=== PATIENT | female | born 1955 | race Caucasian/White ===

== ENCOUNTER 2018-11-22 17:33 | Emergency (ER) | payer OTHER, SELFPAY ==
[2018-11-22 17:36] VITALS: BP 137/84; PULSE 92; RESP 18; TEMP 36.8; O2SAT 95
--- NOTE | 2018-11-22 17:41 | DI.RAD.S_ITS ---
PROCEDURE: XR CHEST 2V INDICATIONS: fever/cough TECHNIQUE: 2 views of the chest were acquired. COMPARISON: [facility], , CHEST 1 VIEW, 09/27/2015, 16:07. FINDINGS: Surgical changes and devices: None. Lungs and pleura: Lungs are clear. No pleural effusions or pneumothorax. Mediastinum: Mediastinal contours are normal. Heart size is mildly enlarged. Bones and chest wall: No suspicious bony abnormalities. Soft tissues appear unremarkable. IMPRESSION: No acute cardiopulmonary pathology. Dictated by: Patrice Ulloa M.D. on 11/22/2018 at 18:33 Approved by: Patrice Ulloa M.D. on 11/22/2018 at 18:33
[2018-11-22 18:08] LABS: Influenza A and B by PCR Rapid Negative (Negative)
[2018-11-22 18:09] LABS: Add Manual Diff / Slide Review NO; Basophils Absolute Auto 100 /uL (0-100); Basophils Percent Auto 1.4 % (0-2); Eosinophils Absolute Auto 400 /uL (0-450); Eosinophils Percent Auto 7.7 % (2-4); Lymphocytes Absolute Auto 1700 /uL (1100-4500); Lymphocytes Percent Auto 31.9 % (25-40); Mean Corpuscular HGB Conc 33.4 % (30-36); Mean Corpuscular Hemoglobin 30.9 PG (26-34); Mean Corpuscular Volume 92.7 fL (80-100); Monocytes Absolute Auto 500 /uL (0-900); Monocytes Percent Auto 10.1 % (3-14); Neutrophils Absolute Auto 2600 /uL (1500-7000); Neutrophils Percent Auto 48.9 % (50-75); Platelet Count 289 X10^3/uL (150-400); Red Blood Cell Count 4.53 X10^6/uL (4.0-5.2); Red Cell Distribution Width 13.2 % (11.6-14.8); White Blood Cell Count 5.3 X10^3/uL (4.5-11.0)
[2018-11-22] MEDS: ONDANSETRON 4 MG/2 ML INJ IV (18:09)
[2018-11-22] MEDS: SODIUM CHLORIDE 0.9% 1,000 ML 1000 ML IV (18:10)
[2018-11-22 18:22] LABS: Alanine Aminotransferase 18 IU/L (9-52); Albumin 4.5 g/dL (3.5-5.0); Albumin Globulin Ratio 1.5 (1.0-2.8); Alkaline Phosphatase 60 U/L (38-126); Aspartate Aminotransferase 30 IU/L (14-36); BUN Creatinine Ratio 17.5 (6-22); Bilirubin Total 0.7 mg/dL (0.2-1.3); Blood Urea Nitrogen 14 mg/dL (7-17); Calcium 9.9 mg/dL (8.4-10.2); Carbon Dioxide 23 mmol/L (22-32); Chloride 102 mmol/L (98-107); Estimated Glomerular Filt Rate > 60.0 mL/min (>60); Globulin 3.1 g/dL (1.7-4.1); Glucose 89 mg/dL (80-110); HEMOLYSIS 47 (0-50); Potassium 4.3 mmol/L (3.4-5.1); Sodium 134 mmol/L (137-145); Total Protein 7.6 g/dL (6.3-8.2)
--- NOTE | 2018-11-22 18:39 | ED_ITS ---
HPI - Nausea/Vomiting/Diarrhea General Chief complaint: Nausea/Vomiting/Diarrhea Stated complaint: kidney pain, nausea, weak Time Seen by Provider: 11/22/18 18:01 Source: patient Mode of arrival: Ambulatory Limitations: no limitations History of Present Illness HPI Narrative: 63-year-old female nonsmoker with history of asthma presents with a chief complaint of about 1 months worth of widespread symptoms. Initially she started with a runny nose, sore throat and dry cough that seemed to trigger her asthma. She on occasion had low fever but nothing persistent. She denies any ongoing year, throat pain. She has no productive cough. She has had some nausea vomiting and diarrhea over the past few weeks. She denies any persistent abdominal pain but says it comes and goes. She denies recent long-distance tr michelle, use of antibiotics, or exposure to ill persons or bad food. She denies any blood in her stool. She denies dysuria, frequency or urgency but does states she has bilateral flank pain. MD complaint: nausea, vomiting and diarrhea Onset (ago): week(s) Description of Vomiting: food contents Description of Diarrhea: watery Associated Abdominal Pain: Yes Location of pain: diffuse Radiation: diffuse Severity: mild Quality: cramping Pain Consistency: intermittent Relieving factors: none Exacerbating factors: none Related Data Home Medications Medication Instructions Recorded Confirmed ALBUTEROL SULFATE (Ventolin / 2 puff INH Q4H PRN #0 01/14/10 Proventil) FLUTICASONE/SALMETEROL (Advair 1 dose IH BID #0 01/14/10 100-50 Diskus) IPRATROPIUM BROMIDE (Atrovent) 0 ml RT * DOSE/FREQUENCY #0 01/14/10 LEVOTHYROXINE SODIUM (Synthroid) 88 mcg PO Q DAY #0 01/14/10 Montelukast Sodium (Singulair) 10 mg PO Q DAY #0 01/14/10 Sumatriptan Succinate (Imitrex) 0 mg PO * UK DOSE/FREQUENCY #0 01/14/10 IBUPROFEN (#MOTRIN) 800 mg PO TID #0 08/17/10 VITAMIN D (Vitamin D3) 1,000 unit PO BID #0 08/17/10 fexofenadine 180 mg PO BID #0 08/17/10 levalbuterol HCl [Xopenex] 1.25 mg IH PRN #0 08/17/10 Ranitidine Hydrochloride 150 mg PO BID #0 10/20/11 (RANITIDINE) tramadol 50 mg PO PRN #0 10/20/11 [RITALIN] 10 mg PO QID #0 11/10/11 ACETAMINOPHEN (TYLENOL ARTHRITIS) 650 mg PO TID #0 03/29/12 Prochlorperazine Maleate 10 mg PO BIDP #0 04/12/12 cyclobenzaprine 10 mg PO TIDP #0 04/12/12 Previous Rx's Medication Instructions Recorded albuterol sulfate [Ventolin HFA] 0 puff INH Q4HP PRN #1 ea 09/27/15 oxycodone-acetaminophen [Percocet] 1 tab PO Q4HP PRN #15 tab 12/12/15 Allergies Allergy/AdvReac Type Severity Reaction Status Date / Time adhesive tape Allergy Mild blisters, Verified 11/22/18 18:09 paper tape ok cephradine [From Velosef] Allergy Mild Hives Verified 11/22/18 18:09 Sulfa (Sulfonamide Allergy Mild Hives Verified 11/22/18 18:09 Antibiotics) gabapentin [GABAPENTIN] Allergy Unknown Verified 11/22/18 18:09 latex [LATEX] Allergy Unknown Verified 11/22/18 18:09 Penicillins [PENICILLINS] Allergy Unknown Verified 11/22/18 18:09 propoxyphene AdvReac Mild itching, Verified 11/22/18 18:09 n/v MULTIPLE METAL ALLERGIES Allergy Unknown Uncoded 05/18/17 12:09 Review of Systems Constitutional Constitutional: Denies chills, Denies fatigue, Denies fever(s), Denies frequent falls, Denies lethargy and Reports weakness Eyes Eyes: Denies change in vision, Denies eye discharge, Denies irritation and Denies loss of vision ENT Ears, Nose, Mouth, and Throat: Denies change in voice, Denies dizziness, Reports nasal discharge, Denies neck pain, Reports post nasal drip, Denies sore throat and Denies throat swelling Cardiovascular Cardiovascular: Denies chest pain, Denies irregular heart rhythm, Denies lightheadedness, Denies palpitations, Denies dyspnea, Denies dyspnea on exertion and Denies orthopnea Respiratory Respiratory: Denies cough, Denies dyspnea, Denies dyspnea on exertion and Denies wheezing Gastrointestinal Gastrointestinal: Denies abdominal pain, Denies change in bowel habits, Reports diarrhea, Reports nausea and Reports vomiting Genitourinary Genitourinary: Denies hematuria, Denies flank pain, Denies urinary incontinence and Denies urinary urgency Musculoskeletal Musculoskeletal: Reports back pain, Denies muscle weakness, Denies neck pain, Denies numbness and Denies tingling Integumentary/Breasts Skin/Breast: Denies pruritus, Denies erythema, Denies rash and Denies wounds Neurologic Neurologic: Denies behavioral changes, Denies confusion, Denies dizziness, Denies frequent falls, Denies loss of vision, Denies numbness, Denies tingling and Reports weakness Psychiatric Psychiatric: Denies anxiety, Denies behavioral changes, Denies confusion, Denies depression, Denies homicidal ideation and Denies suicidal ideation Endocrine Endocrine: Denies fatigue, Denies flushing and Denies palpitations Hematologic/Lymphatic Hematologic/Lymphatic: Denies easy bruising Allergic/Immunologic Allergic/Immunologic: Denies urticaria, Denies throat swelling and Denies wheezing Patient History Social History Smoking Status: Never smoker Social History Smoking Status: Never smoker Exam Narrative Exam Narrative: GENERAL: [63] year old patient appears stated age. Well- nourished, well-developed patient, in mild distress. HEAD: Atraumatic. Normocephalic. EYES: Pupils equal round and reactive. Extraocular motions intact. No scleral icterus. No injection or drainage. ENT: Nose without bleeding, purulent drainage. Throat without erythema, tonsillar hypertrophy or exudate. Airway patent. NECK: Trachea midline. Non tender CARDIOVASCULAR: Regular rate and rhythm without murmurs, gallops, or rubs. RESPIRATORY: Clear to auscultation. Breath sounds equal bilaterally. No wheezes, rales, or rhonchi. GASTROINTESTINAL: Abdomen soft, non-tender, nondistended. EXTREMITIES: No edema or joint tenderness. BACK: Nontender without deformity or crepitance. Mild bilateral CVA tenderness NEURO: AOx3. SKIN: No rash or erythema of visible areas Initial Vital Signs Initial Vital Signs: Vital Signs Temperature 98.3 F 11/22/18 17:36 Pulse Rate 92 H 11/22/18 17:36 Respiratory Rate 18 11/22/18 17:36 Blood Pressure 137/84 11/22/18 17:36 Pulse Oximetry 95 11/22/18 17:36 Course Orders Ordered: ED Orders 11/22/18 17:41 XR chest 2V Stat 11/22/18 17:50 Influenza A and B by PCR Rapid Stat 11/22/18 18:00 CMP [Comprehensive Metabolic Panel] Stat Complete Blood Count AUTO DIFF Stat Lipase Stat 11/22/18 18:38 Urine Microscopic Stat 11/22/18 19:53 CT kidney ureter bladder (KUB) Stat Discontinued Medications Benzonatate (Tessalon Perles) 100 mg PO NOW ONE Stop: 11/22/18 21:08 Last Admin: 11/22/18 21:14 Dose: 100 mg Documented by: NIDA Benzonatate (Tessalon Perles) 100 mg PO NOW ONE Stop: 11/22/18 21:09 Last Admin: 11/22/18 21:14 Dose: 100 mg Documented by: NIDA Sodium Chloride (Normal Saline 0.9%) 1,000 mls @ 1,000 mls/hr IV BOLUS ONE Stop: 11/22/18 18:53 Last Infusion: 11/22/18 20:12 Dose: 0 mls/hr Documented by: Admin: 11/22/18 18:10 Dose: 1,000 mls/hr Documented by: NIDA Ondansetron HCl (Zofran) 4 mg IV NOW ONE Stop: 11/22/18 17:52 Last Admin: 11/22/18 18:09 Dose: 4 mg Documented by: NIDA Vital Signs Vital signs: Vital Signs - 8 hr 11/22/18 19:09 11/22/18 20:54 11/22/18 21:00 Pulse Rate 78 76 87 Respiratory Rate 17 17 16 Blood Pressure [Right Arm] 161/69 H 158/64 H 148/76 H Pulse Oximetry 94 98 97 MDM - Nausea/Vomiting/Diarrhea Lab Data Result diagrams: 11/22/18 18:00 11/22/18 18:00 Labs: Lab Results 11/22/18 11/22/18 11/22/18 Range/Units 17:50 18:00 18:00 WBC 5.3 (4.5-11.0) X10^3/uL RBC 4.53 (4.0-5.2) X10^6/uL Hgb 14.0 (12.0-16.0) g/dL Hct 42.0 (36-46) % MCV 92.7 (80-100) fL MCH 30.9 (26-34) PG MCHC 33.4 (30-36) % RDW 13.2 (11.6-14.8) % Plt Count 289 (150-400) X10^3/uL Neut % (Auto) 48.9 L (50-75) % Lymph % (Auto) 31.9 (25-40) % Moca % (Auto) 10.1 (3-14) % Eos % (Auto) 7.7 H (2-4) % Baso % (Auto) 1.4 (0-2) % Neut # (Auto) 2600 (4966-9234) /uL Lymph # (Auto) 1700 (8294-1471) /uL Moca # (Auto) 500 (0-900) /uL Eos # (Auto) 400 (0-450) /uL Baso # (Auto) 100 (0-100) /uL Sodium 134 L (137-145) mmol/L Potassium 4.3 (3.4-5.1) mmol/L Chloride 102 (98-107) mmol/L Carbon Dioxide 23 (22-32) mmol/L BUN 14 (7-17) mg/dL Creatinine 0.80 (0.52-1.04) mg/dL Estimated GFR > 60.0 (>60) mL/min BUN/Creatinine Ratio 17.5 (6-22) Glucose 89 (80-110) mg/dL Calcium 9.9 (8.4-10.2) mg/dL Total Bilirubin 0.7 (0.2-1.3) mg/dL AST 30 (14-36) IU/L ALT 18 (9-52) IU/L Alkaline Phosphatase 60 (38-126) U/L Total Protein 7.6 (6.3-8.2) g/dL Albumin 4.5 (3.5-5.0) g/dL Globulin 3.1 (1.7-4.1) g/dL Albumin/Globulin Ratio 1.5 (1.0-2.8) Lipase (23-300) U/L Urine RBC (0-5/HPF) Urine WBC (0-5/HPF) Urine Bacteria (None) Ur Culture Indicated? Influenza A & B (PCR) Negative (Negative) 11/22/18 11/22/18 Range/Units 18:00 18:38 WBC (4.5-11.0) X10^3/uL RBC (4.0-5.2) X10^6/uL Hgb (12.0-16.0) g/dL Hct (36-46) % MCV (80-100) fL MCH (26-34) PG MCHC (30-36) % RDW (11.6-14.8) % Plt Count (150-400) X10^3/uL Neut % (Auto) (50-75) % Lymph % (Auto) (25-40) % Moca % (Auto) (3-14) % Eos % (Auto) (2-4) % Baso % (Auto) (0-2) % Neut # (Auto) (6206-0283) /uL Lymph # (Auto) (4636-6463) /uL Moca # (Auto) (0-900) /uL Eos # (Auto) (0-450) /uL Baso # (Auto) (0-100) /uL Sodium (137-145) mmol/L Potassium (3.4-5.1) mmol/L Chloride (98-107) mmol/L Carbon Dioxide (22-32) mmol/L BUN (7-17) mg/dL Creatinine (0.52-1.04) mg/dL Estimated GFR (>60) mL/min BUN/Creatinine Ratio (6-22) Glucose (80-110) mg/dL Calcium (8.4-10.2) mg/dL Total Bilirubin (0.2-1.3) mg/dL AST (14-36) IU/L ALT (9-52) IU/L Alkaline Phosphatase (38-126) U/L Total Protein (6.3-8.2) g/dL Albumin (3.5-5.0) g/dL Globulin (1.7-4.1) g/dL Albumin/Globulin Ratio (1.0-2.8) Lipase 295 (23-300) U/L Urine RBC 10-30/hpf H (0-5/HPF) Urine WBC 0-1/hpf (0-5/HPF) Urine Bacteria None seen (None) Ur Culture Indicated? Cult not indicated Influenza A & B (PCR) (Negative) Urine Dip Bedside Urine Glucose Negative Bedside Urine Bilirubin - Negative Bedside Urine Ketone - Negative Urine Specific [place] 1.010 Bedside Urine Occult Blood +++ Bedside Urine pH 6.0 Bedside Urine Protein - Negative Bedside Urine Urobilinogen - Negative Bedside Urine Nitrite - Negative Bedside Urine Leukocytes - Negative Esterase Imaging Data CT scan - abdomen: Radiologist's impression: [address] [address] [address] Scan Report Signed Patient: Rivka Ye#: [id number] : 4Acct:[id number] Age/Sex: 63 / FDate of Service: 11/22/18 Loc: ED Accession Number: [id number] Procedure: CT kidney ureter bladder (KUB) Ordering Provider: Nishant Baca D.O. PROCEDURE: CT KIDNEY URETER BLADDER (KUB) INDICATIONS: flank pain, hematuria TECHNIQUE: Noncontrast 5 mm thick sections acquired from the diaphragms to the symphysis. 5 mm thick coronal and sagittal reformats were then performed. For radiation dose reduction, the following was used: automated exposure control, adjustment of mA and/or kV according to patient size. COMPARISON: None. FINDINGS: Image quality: Excellent. Lung bases: Lung bases are clear. Heart size is normal. Right breast implant appears intact. Urinary system: Both kidneys are normal in size. No kidney stones. No hydronephrosis or perinephric fat stranding. Both ureters appear non-dilated throughout their expected courses. Bladder wall thickness is normal; no calcified bladder stones. Other solid organs: Liver is normal in size. Gallbladder is within normal limits. Pancreas is normal in contours. Spleen is normal in size. No adrenal nodules. Peritoneum and bowel: Unenhanced bowel loops demonstrate normal wall thickness and caliber. No free fluid or air. No evidence of acute appendicitis or diverticulitis. Nodes and vessels: No retroperitoneal or mesenteric adenopathy by size criteria. Aorta and inferior vena cava are normal in caliber. Abdominal wall: No ventral hernias. Pelvis: No free pelvic fluid. No inguinal hernias or adenopathy. Bones: No suspicious bony lesions. No vertebral body compression fractures. Mild degenerative disc disease throughout lumbar spine is seen. IMPRESSION: 1. No renal stone or hydronephrosis. Normal appearing bilateral ureters or urinary bladder. 2. No bowel obstruction. No free fluid or free air. No evidence of acute appendicitis or diverticulitis. Dictated by: Patrice Ulloa M.D. on 11/22/2018 at 20:21 Approved by: Patrice Ulloa M.D. on 11/22/2018 at 20:27 [facility] Narrative Medical decision making narrative: Multiple etiologies for patient's symptoms considered including: [Pyelonephritis versus kidney stones versus many years perforated bowel obstruction or but the versus other] Patient's symptoms improved or duration of stay with above-stated therapies. Findings and discharge diagnosis discussed with patient/family followed by verbalization of understanding Return precautions discussed with patient/family whom verbalize understanding. Discharge Plan Departure Patient Disposition: Home Clinical Impression: Upper respiratory infection, viral, Nausea & vomiting Fatigue Qualifiers: Fatigue type: unspecified Qualified Code(s): R53.83 - Other fatigue Discharge Date/Time: 11/22/18 21:18 Instructions: Cough, DI for Vomiting -- Adult Activity Restrictions/Additional Instructions: *You have been diagnosed with [multiple symptoms including upper respiratory complaints suggestive of viral infection as well as nausea, vomiting, diarrhea and fatigue.] *What to do: *Take medications as directed *Follow up with your primary care provider in 2-3 days, call for an appointment. Let them know you were seen in the Emergency Department and that we ask that you be seen in follow up *Return to ER if you should have any new, worsening or concerning symptoms Prescriptions: No Action ALBUTEROL SULFATE (Ventolin / Proventil) 2 puff INH Q4H PRN Qty: 0 RF: 0 FLUTICASONE/SALMETEROL (Advair 100-50 Diskus) 1 dose IH BID Qty: 0 RF: 0 IPRATROPIUM BROMIDE (Atrovent) 0 ml RT * UK DOSE/FREQUENCY Qty: 0 RF: 0 LEVOTHYROXINE SODIUM (Synthroid) 88 mcg PO Q DAY Qty: 0 RF: 0 Montelukast Sodium (Singulair) 10 mg PO Q DAY Qty: 0 RF: 0 Sumatriptan Succinate (Imitrex) 0 mg PO * UK DOSE/FREQUENCY Qty: 0 RF: 0 fexofenadine 180 MG tablet 180 mg PO BID Qty: 0 RF: 0 levalbuterol HCl [Xopenex] 1.25 MG/3 ML solution for nebulization 1.25 mg IH PRN Qty: 0 RF: 0 IBUPROFEN (#MOTRIN) 800 mg PO TID Qty: 0 RF: 0 VITAMIN D (Vitamin D3) 1,000 unit PO BID Qty: 0 RF: 0 tramadol 50 MG tablet 50 mg PO PRN Qty: 0 RF: 0 Ranitidine Hydrochloride (RANITIDINE) 150 mg PO BID Qty: 0 RF: 0 [RITALIN] 10 mg PO QID Qty: 0 RF: 0 ACETAMINOPHEN (TYLENOL ARTHRITIS) 650 mg PO TID Qty: 0 RF: 0 cyclobenzaprine 10 MG tablet 10 mg PO TIDP Qty: 0 RF: 0 Prochlorperazine Maleate 10 mg PO BIDP Qty: 0 RF: 0 albuterol sulfate [Ventolin HFA] 90 MCG/PUFF HFA aerosol inhaler 0 puff INH Q4HP PRNQty: 1 RF: 0 oxycodone-acetaminophen [Percocet] 5 MG/325 MG tablet 1 tab PO Q4HP PRNQty: 15 RF: 0 Referrals: [facility] [Outside]
[2018-11-22 19:09] VITALS: BP 161/69; PULSE 78; RESP 17; O2SAT 94
[2018-11-22 19:13] LABS: Bacteria Urine None Seen
[2018-11-22 19:38] LABS: Culture Indicated Urine Cult Not Indicated; RBC Urine 10-30/HPF (0-5/HPF); WBC Urine 0-1/HPF (0-5/HPF)
[2018-11-22 19:39] LABS: Lipase 295 U/L (23-300)
--- NOTE | 2018-11-22 19:53 | DI.CT.S_ITS ---
PROCEDURE: CT KIDNEY URETER BLADDER (KUB) INDICATIONS: flank pain, hematuria TECHNIQUE: Noncontrast 5 mm thick sections acquired from the diaphragms to the symphysis. 5 mm thick coronal and sagittal reformats were then performed. For radiation dose reduction, the following was used: automated exposure control, adjustment of mA and/or kV according to patient size. COMPARISON: None. FINDINGS: Image quality: Excellent. Lung bases: Lung bases are clear. Heart size is normal. Right breast implant appears intact. Urinary system: Both kidneys are normal in size. No kidney stones. No hydronephrosis or perinephric fat stranding. Both ureters appear non-dilated throughout their expected courses. Bladder wall thickness is normal; no calcified bladder stones. Other solid organs: Liver is normal in size. Gallbladder is within normal limits. Pancreas is normal in contours. Spleen is normal in size. No adrenal nodules. Peritoneum and bowel: Unenhanced bowel loops demonstrate normal wall thickness and caliber. No free fluid or air. No evidence of acute appendicitis or diverticulitis. Nodes and vessels: No retroperitoneal or mesenteric adenopathy by size criteria. Aorta and inferior vena cava are normal in caliber. Abdominal wall: No ventral hernias. Pelvis: No free pelvic fluid. No inguinal hernias or adenopathy. Bones: No suspicious bony lesions. No vertebral body compression fractures. Mild degenerative disc disease throughout lumbar spine is seen. IMPRESSION: 1. No renal stone or hydronephrosis. Normal appearing bilateral ureters or urinary bladder. 2. No bowel obstruction. No free fluid or free air. No evidence of acute appendicitis or diverticulitis. Dictated by: Patrice Ulloa M.D. on 11/22/2018 at 20:21 Approved by: Patrice Ulloa M.D. on 11/22/2018 at 20:27
[2018-11-22 20:54] VITALS: BP 158/64; PULSE 76; RESP 17; O2SAT 98
[2018-11-22 21:00] VITALS: BP 148/76; PULSE 87; RESP 16; O2SAT 97
--- NOTE | 2018-11-22 21:09 | PC.NURSE ---
Provider ordered Tessalon Pearls, One cap now, One to go home. Labeled according to protocol / policy.
[2018-11-22] MEDS: BENZONATATE 100 MG CAPSULE PO ×2 (21:14)
== END 2018-11-22 21:18 | disposition home or self-care (01) ==
PROVIDERS: Emergency Medicine; Emergency Provider Emergency Medicine
DX: J06.9 Acute upper respiratory infection, unspecified (principal); R11.2 Nausea with vomiting, unspecified; R53.83 Other fatigue
CPT/HCPCS: 36415; 71046; 74176; 80053; 81003; 81015; 83690; 85025; 87400; 87502; 96361; 96374; 99284; 99285; J2405

== ENCOUNTER 2019-02-12 10:31 | Emergency (ER) | payer MEDICARE, OTHER, SELFPAY ==
[2019-02-12 10:51] VITALS: BP 139/74; PULSE 83; RESP 18; TEMP 36.8; O2SAT 97; BMI 31.7
--- NOTE | 2019-02-12 10:52 | DI.RAD.S_ITS ---
PROCEDURE: XR CHEST 2V INDICATIONS: cough TECHNIQUE: 2 views of the chest were acquired. COMPARISON: [facility], CR, XR CHEST 2V, 11/22/2018, 18:10. FINDINGS: Surgical changes and devices: None. Lungs and pleura: Lungs are clear. No pleural effusions or pneumothorax. Mediastinum: Mediastinal contours are normal. Heart size is normal. Bones and chest wall: No suspicious bony abnormalities. Soft tissues appear unremarkable. IMPRESSION: Stable examination of the chest without acute cardiopulmonary abnormalities or focal consolidation. Dictated by: Bryan Fernandez M.D. on 02/12/2019 at 11:08 Approved by: Bryan Fernandez M.D. on 02/12/2019 at 11:09
[2019-02-12 11:31] LABS: Influenza A - CEPHEID Flu A POSITIVE (NEGATIVE); Influenza B - CEPHEID Flu B NEGATIVE (NEGATIVE)
[2019-02-12] MEDS: ALBUTEROL/IPRATROPIUM 3 ML AMPUL INH (12:08)
[2019-02-12] MEDS: ONDANSETRON 4 MG ODT SL (12:19)
[2019-02-12 12:33] VITALS: BP 135/66; PULSE 92; RESP 22; TEMP 37.3; O2SAT 96
--- NOTE | 2019-02-12 13:59 | ED_ITS ---
HPI - URI/Sore Throat <Tg Kapadia, COMPENSATION INTERN-BC - Last Filed: 02/12/19 14:05> General Chief Complaint: Upper Respiratory Symptoms Stated Complaint: fever,cough,shortness of breath,headache Time Seen by Provider: 02/12/19 11:45 Source: patient Mode of arrival: Ambulatory Limitations: no limitations History of Present Illness HPI Narrative: The patient is a 64-year-old female with a chief complaint of fever cough, headache and worsening asthma. She states that she has had symptoms for 2 weeks. She states that occasionally her sputum is green. She complains of general muscle aches and chills. She has been using her nebulizers at home. She states that she is taking 40 mg of prednisone a day right now. She is mostly concerned about pneumonia. She denies any sore throat or ear pain. She complains of nausea, no vomiting or diarrhea Related Data Home Medications Medication Instructions Recorded Confirmed FLUTICASONE/SALMETEROL (Advair 1 dose IH BID #0 01/14/10 100-50 Diskus) IPRATROPIUM BROMIDE (Atrovent) 0 ml RT * UK DOSE/FREQUENCY #0 01/14/10 Sumatriptan Succinate (Imitrex) 0 mg PO * UK DOSE/FREQUENCY #0 01/14/10 levothyroxine [Synthroid] 88 mcg PO DAILY #0 01/14/10 02/12/19 montelukast 10 mg PO BEDTIME #0 01/14/10 02/12/19 IBUPROFEN (#MOTRIN) 800 mg PO TID #0 08/17/10 VITAMIN D (Vitamin D3) 1,000 unit PO BID #0 08/17/10 fexofenadine 180 mg PO BID #0 08/17/10 levalbuterol HCl [Xopenex] 1.25 mg IH PRN #0 08/17/10 Ranitidine Hydrochloride 150 mg PO BID #0 10/20/11 (RANITIDINE) tramadol 50 mg PO PRN #0 10/20/11 [RITALIN] 10 mg PO QID #0 11/10/11 ACETAMINOPHEN (TYLENOL ARTHRITIS) 650 mg PO TID #0 03/29/12 Prochlorperazine Maleate 10 mg PO BIDP #0 04/12/12 cyclobenzaprine 10 mg PO TIDP #0 04/12/12 albuterol sulfate 02/12/19 albuterol sulfate [Ventolin HFA] 2 puff INH Q4HP PRN 02/12/19 02/12/19 benzonatate 200 mg PO TID PRN 02/12/19 02/12/19 budesonide [Pulmicort] 02/12/19 budesonide-formoterol [Symbicort] INHALATION 02/12/19 doxycycline hyclate 100 mg PO BID 02/12/19 02/12/19 famotidine 02/12/19 omeprazole 20 mg PO BID 02/12/19 02/12/19 prednisone 02/12/19 Previous Rx's Medication Instructions Recorded oxycodone-acetaminophen [Percocet] 1 tab PO Q4HP PRN #15 tab 12/12/15 Allergies Allergy/AdvReac Type Severity Reaction Status Date / Time adhesive tape Allergy Mild blisters, Verified 02/12/19 10:51 paper tape ok cephradine [From Velosef] Allergy Mild Hives Verified 02/12/19 10:51 Sulfa (Sulfonamide Allergy Mild Hives Verified 02/12/19 10:51 Antibiotics) gabapentin [GABAPENTIN] Allergy Unknown Verified 02/12/19 10:51 latex [LATEX] Allergy Unknown Verified 02/12/19 10:51 Penicillins [PENICILLINS] Allergy Unknown Verified 02/12/19 10:51 propoxyphene AdvReac Mild itching, Verified 02/12/19 10:51 n/v MULTIPLE METAL ALLERGIES Allergy Unknown Uncoded 02/12/19 10:51 Review of Systems <ANA Nolasco - Last Filed: 02/12/19 14:05> Review of Systems Narrative: GENERAL: See HPI HEENT: Denies sinus pain, ear pain, sore throat, difficulty swallowing, dizziness. RESPIRATORY: See HPI CARDIOVASCULAR: Denies chest pain, palpitations, orthopnea, edema, GASTROINTESTINAL: See HPI : Denies dysuria, frequency, incontinence, hematuria, urinary retention. MUSCULOSKELETAL: denies weakness, joint pain, or bony pain SKIN: Denies rash, skin lesions, or other NEUROLOGIC: Denies weakness, headache, numbness, change in speech, confusion, seizures, incoordination. PSYCHIATRIC: No concerning psychosocial issues. 12 point review of systems is negative except for those stated above Patient History <ANA Nolasco - Last Filed: 02/12/19 14:05> Social History Smoking Status: Never smoker Smoking Status: Never smoker Exam <ANA Nolasco - Last Filed: 02/12/19 14:05> Narrative Exam Narrative: GENERAL: This is a well-nourished, well-developed patient, no acute distress HEAD: Atraumatic. Normocephalic. No temporal or scalp tenderness. EYES: Pupils equal round and reactive. Extraocular motions intact. No scleral icterus. No injection or drainage. ENT: Nose without bleeding, purulent drainage or septal hematoma. Throat without erythema, tonsillar hypertrophy or exudate. Uvula midline. Airway patent. NECK: Trachea midline. No JVD or lymphadenopathy. Supple, nontender, no meningeal signs. CARDIOVASCULAR: Regular rate and rhythm RESPIRATORY: Diffuse expiratory wheezes all hernadez auscultation. Breath sounds equal bilaterally. No rales, or rhonchi. Occasional cough. Speaking full sentences. No increased respiratory effort. GASTROINTESTINAL: Abdomen soft, non-tender, nondistended. No hepato- splenomegaly, or palpable masses. No guarding. EXTREMITIES: No clubbing, cyanosis, or edema. No joint tenderness, effusion, or edema noted. BACK: Nontender without deformity or crepitance. No flank tenderness. NEURO: AOx3. SKIN: No rash or erythema on visible skin Initial Vital Signs Initial Vital Signs: Vital Signs Temperature 98.3 F 02/12/19 10:51 Pulse Rate 83 02/12/19 10:51 Respiratory Rate 18 02/12/19 10:51 Blood Pressure 139/74 02/12/19 10:51 Pulse Oximetry 97 02/12/19 10:51 <Kristin Hayes MD - Last Filed: 02/12/19 20:07> Initial Vital Signs Initial Vital Signs: Vital Signs Temperature 98.3 F 02/12/19 10:51 Pulse Rate 83 02/12/19 10:51 Respiratory Rate 18 02/12/19 10:51 Blood Pressure 139/74 02/12/19 10:51 Pulse Oximetry 97 02/12/19 10:51 Scores <ANA Nolasco - Last Filed: 02/12/19 14:05> GCS [place] coma scale eye opening: Spontaneous Audrey coma scale verbal response: Orientated Audrey coma scale motor response: Obey commands Audrey coma scale total score: 15 Course <ANA Nolasco - Last Filed: 02/12/19 14:05> Orders Ordered: ED Orders 02/12/19 12:02 RT Consult Eval and Treat NOW 02/12/19 13:00 Sputum Culture Stat Discontinued Medications Albuterol/Ipratropium (Duoneb) 3 ml INH NOW ONE Stop: 02/12/19 12:07 Last Admin: 02/12/19 12:08 Dose: 3 ml Documented by: RSELFRIDLEILANI Ondansetron HCl (Zofran Odt) 4 mg SL NOW ONE Stop: 02/12/19 12:03 Last Admin: 02/12/19 12:19 Dose: 4 mg Documented by: CPRUITT Vital Signs Vital signs: Vital Signs - 8 hr 02/12/19 12:33 Temperature 99.1 F Pulse Rate 92 H Respiratory Rate 22 Blood Pressure [Left Arm] 135/66 Pulse Oximetry 96 <Kristin Hayes MD - Last Filed: 02/12/19 20:07> Orders Ordered: ED Orders 02/12/19 12:02 RT Consult Eval and Treat NOW 02/12/19 13:00 Sputum Culture Stat Discontinued Medications Albuterol/Ipratropium (Duoneb) 3 ml INH NOW ONE Stop: 02/12/19 12:07 Last Admin: 02/12/19 12:08 Dose: 3 ml Documented by: RSELFRIDLEILANI Ondansetron HCl (Zofran Odt) 4 mg SL NOW ONE Stop: 02/12/19 12:03 Last Admin: 02/12/19 12:19 Dose: 4 mg Documented by: CPRUITT Vital Signs Vital signs: Vital Signs - 8 hr 02/12/19 12:33 Temperature 99.1 F Pulse Rate 92 H Respiratory Rate 22 Blood Pressure [Left Arm] 135/66 Pulse Oximetry 96 MDM - URI/Sore Throat <ANA Nolasco - Last Filed: 02/12/19 14:05> Lab Data Labs: Lab Results 02/12/19 Range/Units 10:47 Influenza A (RT-PCR) Flu a positive H (NEGATIVE) Influenza B (RT-PCR) Flu b negative (NEGATIVE) Imaging Data Chest x-ray: Radiologist's Impression: Rivka Ye 64 F [address] [address] XRay Report Signed Patient: Rivka YeMR#: [id number] : 1955cct:[id number] Age/Sex: 64 / FDate of Service: 02/12/19 Loc: ED Accession Number: [id number] Procedure: XR chest 2V Ordering Provider: Kristin Hayes MD PROCEDURE: XR CHEST 2V INDICATIONS: cough TECHNIQUE: 2 views of the chest were acquired. COMPARISON: [facility], , XR CHEST 2V, 11/22/2018, 18:10. FINDINGS: Surgical changes and devices: None. Lungs and pleura: Lungs are clear. No pleural effusions or pneumothorax. Mediastinum: Mediastinal contours are normal. Heart size is normal. Bones and chest wall: No suspicious bony abnormalities. Soft tissues appear unremarkable. IMPRESSION: Stable examination of the chest without acute cardiopulmonary abnormalities or focal consolidation. Dictated by: Bryan Fernandez M.D. on 02/12/2019 at 11:08 Approved by: Bryan Fernandez M.D. on 02/12/2019 at 11:09 [facility] Narrative Medical decision making narrative: The patient is a 64-year-old female who presents with a chief complaint of fever muscle aches cough and congestion. She does test positive for flu A. X-ray is not concerning for pneumonia. She does have wheezing on exam, correlating with her asthma history. She was given a nebulizing the emergency department which she states improved. I gave her Zofran as well, and she was able to drink fluids. I discussed at length a burst of steroids, and the patient is on steroids at this time at 40 mg per day. She states that she has been on doses as high as 120 mg per day. I discussed a burst for 5 days would be appropriate, the patient does not want a prescription of this and states that she will use her home supply to provide a burst of 80 mg q.day for 5 days. She does plan on following up with her asthma physician. I discussed the possibility of admission given the severity of her wheezing, but the patient wants to go home at this point time. She is able to speak full sentences, greatly improved after nebulizer treatment, and is oxygenating well in the emergency department. I did discuss at length strict return precautions. Unfortunately the patient is out of the Tamiflu window. I encouraged follow-up with primary care provider as well as come back to the emergency department for any acute concerns such as significant shortness of breath etc.. Patient has no questions or concerns upon discharge and states understanding of return precautions as well as follow-up care. Sputum cultures pending at this time. <Kristin Hayes MD - Last Filed: 02/12/19 20:07> Lab Data Labs: Lab Results 02/12/19 Range/Units 10:47 Influenza A (RT-PCR) Flu a positive H (NEGATIVE) Influenza B (RT-PCR) Flu b negative (NEGATIVE) Discharge Plan Departure Patient Disposition: Home Clinical Impression: Acute asthma, Influenza A Discharge Date/Time: 02/12/19 13:20 Instructions: DI for Asthma -- Adult, DI for Influenza -- Adult Activity Restrictions/Additional Instructions: Today you tested positive for influenza A. Your x-ray shows no sign of pneumonia Please rest, push fluids. As discussed, I would increase your prednisone for a burst for 5 days. I would have prescribed 80 mg a day for 5 days given your wheezing. Please take your nebulizers every 4 hours as needed. Please follow-up with primary care provider as well as your asthma physician. As discussed, if you have any acute concerns please come back to the emergency department such as increased shortness of breath etcetera Prescriptions: No Action levothyroxine [Synthroid] 88 mcg Tablet 88 mcg PO DAILY Qty: 0 RF: 0 montelukast 10 mg Tablet 10 mg PO BEDTIME Qty: 0 RF: 0 FLUTICASONE/SALMETEROL (Advair 100-50 Diskus) 1 dose IH BID Qty: 0 RF: 0 IPRATROPIUM BROMIDE (Atrovent) 0 ml RT * UK DOSE/FREQUENCY Qty: 0 RF: 0 Sumatriptan Succinate (Imitrex) 0 mg PO * UK DOSE/FREQUENCY Qty: 0 RF: 0 fexofenadine 180 MG tablet 180 mg PO BID Qty: 0 RF: 0 levalbuterol HCl [Xopenex] 1.25 MG/3 ML solution for nebulization 1.25 mg IH PRN Qty: 0 RF: 0 IBUPROFEN (#MOTRIN) 800 mg PO TID Qty: 0 RF: 0 VITAMIN D (Vitamin D3) 1,000 unit PO BID Qty: 0 RF: 0 tramadol 50 MG tablet 50 mg PO PRN Qty: 0 RF: 0 Ranitidine Hydrochloride (RANITIDINE) 150 mg PO BID Qty: 0 RF: 0 [RITALIN] 10 mg PO QID Qty: 0 RF: 0 ACETAMINOPHEN (TYLENOL ARTHRITIS) 650 mg PO TID Qty: 0 RF: 0 cyclobenzaprine 10 MG tablet 10 mg PO TIDP Qty: 0 RF: 0 Prochlorperazine Maleate 10 mg PO BIDP Qty: 0 RF: 0 oxycodone-acetaminophen [Percocet] 5 MG/325 MG tablet 1 tab PO Q4HP PRNQty: 15 RF: 0 prednisone 20 mg tablet RF: 0 famotidine 20 mg tablet RF: 0 benzonatate 100 mg capsule 200 mg PO TID PRN (Reason: Cough) RF: 0 omeprazole 20 mg capsule,delayed release(DR/EC) 20 mg PO BID RF: 0 budesonide [Pulmicort] 0.5 mg/2 mL suspension for nebulization RF: 0 doxycycline hyclate 100 mg tablet 100 mg PO BID RF: 0 albuterol sulfate 2.5 mg/0.5 mL solution for nebulization RF: 0 Symbicort 160-4.5 mcg/actuation HFA aerosol inhaler INHALATION RF: 0 albuterol sulfate [Ventolin HFA] 90 MCG/PUFF HFA aerosol inhaler 2 puff INH Q4HP PRN (Reason: Shortness Of Breath) RF: 0
== END 2019-02-12 13:20 | disposition home or self-care (01) ==
PROVIDERS: Emergency Medicine; Emergency Provider Nurse Practitioner Family
DX: J09.X2 Influenza due to identified novel influenza A virus with other respiratory manifestations (principal); J45.901 Unspecified asthma with (acute) exacerbation
CPT/HCPCS: 71046; 87070; 87205; 87502; 99281; 99283

== ENCOUNTER 2019-05-04 17:35 | Emergency (ER) | payer MEDICARE, OTHER, SELFPAY ==
[2019-05-04 17:47] VITALS: BP 209/93; PULSE 100; RESP 28; TEMP 37.1; O2SAT 95; BMI 34.0
[2019-05-04 18:16] LABS: Bacteria Urine None Seen; RBC Urine None Seen (0-5/HPF); WBC Urine None Seen (0-5/HPF)
--- NOTE | 2019-05-04 18:18 | DI.RAD.S_ITS ---
PROCEDURE: XR CHEST 1V INDICATIONS: SOB, Cough TECHNIQUE: One view of the chest was acquired. COMPARISON: [facility], CR, XR CHEST 2V, 11/22/2018, 18:10. [facility], CR, XR CHEST 2V, 02/12/2019, 10:52. FINDINGS: Surgical changes and devices: None. Lungs and pleura: Scattered subsegmental atelectasis and/or scarring. No focal consolidation. mildly increased hazy and ground glass opacities bilaterally. No pleural effusions or pneumothorax. Mediastinum: Mediastinal contours appear normal. Heart size is normal. Bones and chest wall: No suspicious bony lesions. Overlying soft tissues appear unremarkable. IMPRESSION: Mildly increased ill-defined and hazy groundglass opacities raise the possibility of minimal or developing pulmonary edema. Differential includes low-grade atypical/viral pneumonia. No focal consolidation Dictated by: Jose Khan M.D. on 05/04/2019 at 19:06 Approved by: Jose Khan M.D. on 05/04/2019 at 19:08
[2019-05-04 18:20] LABS: Appearance Urine UA CLEAR; Bilirubin Urine UA NEGATIVE (NEGATIVE); Color Urine UA YELLOW; Glucose Urine UA NEGATIVE (Negative); Ketones Urine UA NEGATIVE (NEGATIVE); Leukocyte Esterase Urine UA NEGATIVE (NEGATIVE); Nitrite Urine UA NEGATIVE (Negative); Occult Blood Urine UA NEGATIVE (Negative); Protein Urine UA NEGATIVE (Negative); Urobilinogen Urine UA 0.2 E.U./dL (0.2)
[2019-05-04 18:32] LABS: pH Urine UA 6.5 (4.5-8.0)
[2019-05-04 18:33] LABS: Culture Indicated Urine Cult Not Indicated
--- NOTE | 2019-05-04 18:45 | ED.SOB ---
HPI - SOB/Dyspnea General Chief Complaint: Shortness of Breath/Dyspnea Stated Complaint: SOB FEVER COUGH SORE THROAT Time Seen by Provider: 05/04/19 18:16 Source: patient and family Mode of arrival: Family Vehicle Limitations: no limitations History of Present Illness HPI Narrative: 64-year-old female nonsmoker with history of asthma and recent diagnosis of influenza a presents to the emergency department by herself with a chief complaint of fever, increased use of her nebulizers, and rapidly worsening shortness of breath over the past day or 2. She denies any recent travel or exposure to persons known to have COVID-19. She denies any headache but admits to sneezing, sore throat and a persistent dry and hacking cough. She has no GI symptoms such as nausea, vomiting or diarrhea. She denies dysuria, frequency or urgency. She comes to us from [place] and lives at home with her MD Complaint: shortness of breath and cough Onset (ago): day(s) Context: recent illness Severity: moderate Consistency/Duration: constant Relieving factors: rest Exacerbating factors: coughing and inspiration Known history of: asthma Associated symptoms: fever, cough and wheezing Treatment prior to arrival: bronchodilator Related Data Home oxygen amount: none Home Medications Medication Instructions Recorded Confirmed FLUTICASONE/SALMETEROL (Advair 1 dose IH BID #0 01/14/10 100-50 Diskus) IPRATROPIUM BROMIDE (Atrovent) 0 ml RT * DOSE/FREQUENCY #0 01/14/10 Sumatriptan Succinate (Imitrex) 0 mg PO * DOSE/FREQUENCY #0 01/14/10 levothyroxine [Synthroid] 88 mcg PO DAILY #0 01/14/10 02/12/19 montelukast 10 mg PO BEDTIME #0 01/14/10 02/12/19 IBUPROFEN (#MOTRIN) 800 mg PO TID #0 08/17/10 VITAMIN D (Vitamin D3) 1,000 unit PO BID #0 08/17/10 fexofenadine 180 mg PO BID #0 08/17/10 levalbuterol HCl [Xopenex] 1.25 mg IH PRN #0 08/17/10 Ranitidine Hydrochloride 150 mg PO BID #0 10/20/11 (RANITIDINE) tramadol 50 mg PO PRN #0 10/20/11 [RITALIN] 10 mg PO QID #0 11/10/11 ACETAMINOPHEN (TYLENOL ARTHRITIS) 650 mg PO TID #0 03/29/12 Prochlorperazine Maleate 10 mg PO BIDP #0 04/12/12 cyclobenzaprine 10 mg PO TIDP #0 04/12/12 albuterol sulfate 02/12/19 albuterol sulfate [Ventolin HFA] 2 puff INH Q4HP PRN 02/12/19 02/12/19 benzonatate 200 mg PO TID PRN 02/12/19 02/12/19 budesonide [Pulmicort] 02/12/19 budesonide-formoterol [Symbicort] INHALATION 02/12/19 doxycycline hyclate 100 mg PO BID 02/12/19 02/12/19 famotidine 02/12/19 omeprazole 20 mg PO BID 02/12/19 02/12/19 prednisone 02/12/19 Previous Rx's Medication Instructions Recorded oxycodone-acetaminophen [Percocet] 1 tab PO Q4HP PRN #15 tab 12/12/15 promethazine-codeine 5 ml PO Q4-6H PRN #473 ml 05/04/19 Allergies Allergy/AdvReac Type Severity Reaction Status Date / Time bacitracin Allergy Severe Redness of Verified 05/04/19 17:58 [From Neosporin Skin ([id number])] neomycin Allergy Severe Redness of Verified 05/04/19 17:58 [From Neosporin Skin ([id number])] polymyxin B Allergy Severe Redness of Verified 05/04/19 17:58 [From Neosporin Skin ([id number])] adhesive tape Allergy Mild blisters, Verified 05/04/19 17:58 paper tape ok cephradine [From Velosef] Allergy Mild Hives Verified 05/04/19 17:58 Sulfa (Sulfonamide Allergy Mild Hives Verified 05/04/19 17:58 Antibiotics) gabapentin [GABAPENTIN] Allergy Unknown Verified 05/04/19 17:58 latex [LATEX] Allergy Unknown Verified 05/04/19 17:58 Penicillins [PENICILLINS] Allergy Unknown Verified 05/04/19 17:58 propoxyphene AdvReac Mild itching, Verified 05/04/19 17:58 n/v MULTIPLE METAL ALLERGIES Allergy Unknown Uncoded 05/04/19 17:58 Review of Systems Constitutional Constitutional: Reports chills, Denies fatigue, Reports fever(s), Denies frequent falls, Denies lethargy and Denies weakness Eyes Eyes: Denies change in vision, Denies eye discharge, Denies irritation and Denies loss of vision ENT Ears, Nose, Mouth, and Throat: Denies change in voice, Denies dizziness, Denies neck pain, Reports sore throat and Reports throat swelling Cardiovascular Cardiovascular: Denies chest pain, Denies irregular heart rhythm, Denies lightheadedness, Denies palpitations, Reports dyspnea, Reports dyspnea on exertion and Denies orthopnea Respiratory Respiratory: Reports cough, Reports dyspnea, Reports dyspnea on exertion and Reports wheezing Gastrointestinal Gastrointestinal: Denies abdominal pain, Denies change in bowel habits, Denies diarrhea, Denies nausea and Denies vomiting Genitourinary Genitourinary: Denies hematuria, Denies flank pain, Denies urinary incontinence and Denies urinary urgency Musculoskeletal Musculoskeletal: Denies back pain, Denies muscle weakness, Denies neck pain, Denies numbness and Denies tingling Integumentary/Breasts Skin/Breast: Denies pruritus, Denies erythema, Denies rash and Denies wounds Neurologic Neurologic: Denies behavioral changes, Denies confusion, Denies dizziness, Denies frequent falls, Denies loss of vision, Denies numbness, Denies tingling and Denies weakness Psychiatric Psychiatric: Denies anxiety, Denies behavioral changes, Denies confusion, Denies depression, Denies homicidal ideation and Denies suicidal ideation Endocrine Endocrine: Denies fatigue, Denies flushing and Denies palpitations Hematologic/Lymphatic Hematologic/Lymphatic: Denies easy bruising Allergic/Immunologic Allergic/Immunologic: Denies urticaria, Reports throat swelling and Reports wheezing Patient History Social History Smoking Status: Never smoker Smoking Status: Never smoker alcohol intake frequency: 0-2 drinks per day Substance Use Type: does not use Exam Narrative Exam Narrative: GENERAL: [64] year old patient appears stated age. Well-nourished, well-developed patient, in mild distress. Mild increased work of breathing, cough with any deep breath HEAD: Atraumatic. Normocephalic. EYES: Pupils equal round and reactive. Extraocular motions intact. No scleral icterus. No injection or drainage. ENT: Nose without bleeding, purulent drainage. Throat without erythema, tonsillar hypertrophy or exudate. Airway patent. NECK: Trachea midline. Non tender CARDIOVASCULAR: Regular rate and rhythm without murmurs, gallops, or rubs. RESPIRATORY: Clear to auscultation. Breath sounds equal bilaterally. No wheezes, rales, or rhonchi. GASTROINTESTINAL: Abdomen soft, non-tender, nondistended. EXTREMITIES: No edema or joint tenderness. BACK: Nontender without deformity or crepitance. No flank tenderness. NEURO: AOx3. SKIN: No rash or erythema of visible areas Initial Vital Signs Initial Vital Signs: Vital Signs Temperature 98.8 F 05/04/19 17:47 Pulse Rate 100 H 05/04/19 17:47 Respiratory Rate 28 H 05/04/19 17:47 Blood Pressure 209/93 H 05/04/19 17:47 Pulse Oximetry 95 05/04/19 17:47 Course Course Course Narrative: Given patient's history and symptomatology she is high risk for Covid-19 and has been placed under appropriate precautions. Orders Ordered: ED Orders 05/04/19 18:10 Influenza A & B (PCR) Stat Urinalysis and Microscopic Stat 05/04/19 18:18 XR chest 1V Stat 05/04/19 18:46 CT chest wo con Stat 05/04/19 18:51 C-Reactive Protein Quant Stat Complete Blood Count AUTO DIFF Stat Comprehensive Metabolic Panel Stat D Dimer Stat Ferritin Stat Lactate (Lactic Acid) Stat NT-proBNP (BNP-Adult 18+) Stat Procalcitonin Stat Troponin & CK Cardiac Panel Stat 05/04/19 19:14 Blood Culture Stat Vital Signs Vital signs: Vital Signs - 8 hr 05/04/19 17:47 05/04/19 19:54 Temperature 98.8 F Pulse Rate 100 H 101 H Respiratory Rate 28 H 22 Blood Pressure 209/93 H Blood Pressure [Left Arm] 143/83 H Pulse Oximetry 95 94 MDM - SOB/Dyspnea Lab Data Result diagrams: 05/04/19 18:51 05/04/19 18:51 Labs: Lab Results 05/04/19 05/04/19 05/04/19 Range/Units 18:10 18:10 18:51 WBC 6.0 (4.5-11.0) X10^3/uL RBC 3.82 L (4.0-5.2) X10^6/uL Hgb 12.1 (12.0-16.0) g/dL Hct 36.0 (36-46) % MCV 94.2 (80-100) fL MCH 31.7 (26-34) PG MCHC 33.7 (30-36) % RDW 13.8 (11.6-14.8) % Plt Count 320 (150-400) X10^3/uL Neut % (Auto) 86.0 H (50-75) % Lymph % (Auto) 9.9 L (25-40) % Hunt % (Auto) 3.6 (3-14) % Eos % (Auto) 0.0 L (2-4) % Baso % (Auto) 0.5 (0-2) % Neut # (Auto) 5200 (4696-9824) /uL Lymph # (Auto) 600 L (6814-5821) /uL Hunt # (Auto) 200 (0-900) /uL Eos # (Auto) 0 (0-450) /uL Baso # (Auto) 0 (0-100) /uL D-Dimer (<230) ng/mL Sodium (137-145) mmol/L Potassium (3.4-5.1) mmol/L Chloride (98-107) mmol/L Carbon Dioxide (22-32) mmol/L BUN (7-17) mg/dL Creatinine (0.52-1.04) mg/dL Estimated GFR (>60) mL/min BUN/Creatinine Ratio (6-22) Glucose (80-110) mg/dL Lactate (0.7-2.1) mmol/L Calcium (8.4-10.2) mg/dL Ferritin (11-264) ng/mL Total Bilirubin (0.2-1.3) mg/dL AST (14-36) IU/L ALT (<35) IU/L Alkaline Phosphatase (38-126) U/L Total Creatine Kinase (30-135) U/L CK-MB (CK-2) CK-MB (CK-2) Rel Index Troponin I (0.01-0.034) ng/mL C-Reactive Protein (<1.0) mg/dL NT-Pro-B Natriuret Pep (<125) pg/mL Total Protein (6.3-8.2) g/dL Albumin (3.5-5.0) g/dL Globulin (1.7-4.1) g/dL Albumin/Globulin Ratio (1.0-2.8) Procalcitonin (<0.5) ng/mL Urine Color Yellow Urine Appearance Clear Urine pH 6.5 (4.5-8.0) Ur Specific [place] 1.010 (1.000-1.035) Urine Protein Negative (Negative) Urine Glucose (UA) Negative (Negative) g/dL Urine Ketones Negative (NEGATIVE) Urine Occult Blood Negative (Negative) Urine Nitrate Negative (Negative) Urine Bilirubin Negative (NEGATIVE) Urine Urobilinogen 0.2 (0.2) E.U./dL Ur Leukocyte Esterase Negative (NEGATIVE) Urine RBC None seen (0-5/HPF) Urine WBC None seen (0-5/HPF) Urine Bacteria None seen (None) Ur Culture Indicated? Cult not indicated Influenza A (RT-PCR) Flu a negative (NEGATIVE) Influenza B (RT-PCR) Flu b negative (NEGATIVE) 05/04/19 05/04/19 05/04/19 Range/Units 18:51 18:51 18:51 WBC (4.5-11.0) X10^3/uL RBC (4.0-5.2) X10^6/uL Hgb (12.0-16.0) g/dL Hct (36-46) % MCV (80-100) fL MCH (26-34) PG MCHC (30-36) % RDW (11.6-14.8) % Plt Count (150-400) X10^3/uL Neut % (Auto) (50-75) % Lymph % (Auto) (25-40) % Hunt % (Auto) (3-14) % Eos % (Auto) (2-4) % Baso % (Auto) (0-2) % Neut # (Auto) (5799-7264) /uL Lymph # (Auto) (2380-5730) /uL Hunt # (Auto) (0-900) /uL Eos # (Auto) (0-450) /uL Baso # (Auto) (0-100) /uL D-Dimer 289 H (<230) ng/mL Sodium 139 (137-145) mmol/L Potassium 4.0 (3.4-5.1) mmol/L Chloride 106 (98-107) mmol/L Carbon Dioxide 26 (22-32) mmol/L BUN 13 (7-17) mg/dL Creatinine 0.75 (0.52-1.04) mg/dL Estimated GFR > 60.0 (>60) mL/min BUN/Creatinine Ratio 17.3 (6-22) Glucose 151 H (80-110) mg/dL Lactate (0.7-2.1) mmol/L Calcium 9.6 (8.4-10.2) mg/dL Ferritin (11-264) ng/mL Total Bilirubin 0.4 (0.2-1.3) mg/dL AST 100 H (14-36) IU/L ALT 162 H (<35) IU/L Alkaline Phosphatase 110 (38-126) U/L Total Creatine Kinase (30-135) U/L CK-MB (CK-2) CK-MB (CK-2) Rel Index Troponin I (0.01-0.034) ng/mL C-Reactive Protein (<1.0) mg/dL NT-Pro-B Natriuret Pep (<125) pg/mL Total Protein 7.8 (6.3-8.2) g/dL Albumin 4.5 (3.5-5.0) g/dL Globulin 3.3 (1.7-4.1) g/dL Albumin/Globulin Ratio 1.4 (1.0-2.8) Procalcitonin < 0.05 (<0.5) ng/mL Urine Color Urine Appearance Urine pH (4.5-8.0) Ur Specific [place] (1.000-1.035) Urine Protein (Negative) Urine Glucose (UA) (Negative) g/dL Urine Ketones (NEGATIVE) Urine Occult Blood (Negative) Urine Nitrate (Negative) Urine Bilirubin (NEGATIVE) Urine Urobilinogen (0.2) E.U./dL Ur Leukocyte Esterase (NEGATIVE) Urine RBC (0-5/HPF) Urine WBC (0-5/HPF) Urine Bacteria (None) Ur Culture Indicated? Influenza A (RT-PCR) (NEGATIVE) Influenza B (RT-PCR) (NEGATIVE) 05/04/19 05/04/19 05/04/19 Range/Units 18:51 18:51 18:51 WBC (4.5-11.0) X10^3/uL RBC (4.0-5.2) X10^6/uL Hgb (12.0-16.0) g/dL Hct (36-46) % MCV (80-100) fL MCH (26-34) PG MCHC (30-36) % RDW (11.6-14.8) % Plt Count (150-400) X10^3/uL Neut % (Auto) (50-75) % Lymph % (Auto) (25-40) % Hunt % (Auto) (3-14) % Eos % (Auto) (2-4) % Baso % (Auto) (0-2) % Neut # (Auto) (7735-0489) /uL Lymph # (Auto) (6061-2554) /uL Hunt # (Auto) (0-900) /uL Eos # (Auto) (0-450) /uL Baso # (Auto) (0-100) /uL D-Dimer (<230) ng/mL Sodium (137-145) mmol/L Potassium (3.4-5.1) mmol/L Chloride (98-107) mmol/L Carbon Dioxide (22-32) mmol/L BUN (7-17) mg/dL Creatinine (0.52-1.04) mg/dL Estimated GFR (>60) mL/min BUN/Creatinine Ratio (6-22) Glucose (80-110) mg/dL Lactate 1.7 (0.7-2.1) mmol/L Calcium (8.4-10.2) mg/dL Ferritin 53 (11-264) ng/mL Total Bilirubin (0.2-1.3) mg/dL AST (14-36) IU/L ALT (<35) IU/L Alkaline Phosphatase (38-126) U/L Total Creatine Kinase 59 (30-135) U/L CK-MB (CK-2) TNP CK-MB (CK-2) Rel Index TNP Troponin I < 0.012 (0.01-0.034) ng/mL C-Reactive Protein 2.1 H (<1.0) mg/dL NT-Pro-B Natriuret Pep 415 H (<125) pg/mL Total Protein (6.3-8.2) g/dL Albumin (3.5-5.0) g/dL Globulin (1.7-4.1) g/dL Albumin/Globulin Ratio (1.0-2.8) Procalcitonin (<0.5) ng/mL Urine Color Urine Appearance Urine pH (4.5-8.0) Ur Specific [place] (1.000-1.035) Urine Protein (Negative) Urine Glucose (UA) (Negative) g/dL Urine Ketones (NEGATIVE) Urine Occult Blood (Negative) Urine Nitrate (Negative) Urine Bilirubin (NEGATIVE) Urine Urobilinogen (0.2) E.U./dL Ur Leukocyte Esterase (NEGATIVE) Urine RBC (0-5/HPF) Urine WBC (0-5/HPF) Urine Bacteria (None) Ur Culture Indicated? Influenza A (RT-PCR) (NEGATIVE) Influenza B (RT-PCR) (NEGATIVE) Imaging Data Chest x-ray: Radiologist's Impression: Rivka Ye 64 F [address] [address] XRay Report Signed Patient: Rivka YeMR#: [id number] : 4Acct:[id number] Age/Sex: 64 / FDate of Service: 05/04/19 Loc: ED Accession Number: [id number] Procedure: XR chest 1V Ordering Provider: Nishant Baca D.O. PROCEDURE: XR CHEST 1V INDICATIONS: SOB, Cough TECHNIQUE: One view of the chest was acquired. COMPARISON: [facility], CR, XR CHEST 2V, 11/22/2018, 18:10. [facility], CR, XR CHEST 2V, 02/12/2019, 10:52. FINDINGS: Surgical changes and devices: None. Lungs and pleura: Scattered subsegmental atelectasis and/or scarring. No focal consolidation. mildly increased hazy and ground glass opacities bilaterally. No pleural effusions or pneumothorax. Mediastinum: Mediastinal contours appear normal. Heart size is normal. Bones and chest wall: No suspicious bony lesions. Overlying soft tissues appear unremarkable. IMPRESSION: Mildly increased ill-defined and hazy groundglass opacities raise the possibility of minimal or developing pulmonary edema. Differential includes low-grade atypical/viral pneumonia. No focal consolidation Dictated by: Jose Khan M.D. on 05/04/2019 at 19:06 Approved by: Jose Khan M.D. on 05/04/2019 at 19:08 CT scan - chest: Radiologist's Impression: Chart Viewer Diagnostics DATE TYPE STATUS AUTHOR Hx 05/04/19 18:46 Jose Khan 05/04/19 18:18 Jose Khan 02/12/19 10:52 Bryan Fernandez 11/22/18 19:53 Patrice Ulloa 11/22/18 17:41 ArtemioPatrice Rivka Ye 64, 1955 [facility], [facility] 175.26cm 104.326kg BMI: 34.0kg/m? Shortness of Breath/Dyspnea Search Chart No Data to Display NF - Not included in interaction checking Redness of Skin Redness of Skin Redness of Skin blisters, paper tape ok Hives Hives itching, n/v ONSET 05/04/19 19:54 Rivka Yeyne 64 F 1955 [place] [address] CT Scan Report Signed Patient: Rivka YeMR#: [id number] : [id number]:[id number] Age/Sex: 64 / FDate of Service: 05/04/19 Loc: ED Accession Number: [id number] Procedure: CT chest wo con Ordering Provider: Nishant Baca D.O. PROCEDURE: CT CHEST WO CON INDICATIONS: SOB, cough, fever TECHNIQUE: Noncontrast 5 mm thick sections acquired from the pulmonary apices to the posterior costophrenic angles. 1 mm lung window, 5 mm thick coronal and sagittal and 7 mm axial MIP reformats were then acquired. For radiation dose reduction, the following was used: automated exposure control, adjustment of mA and/or kV according to patient size. COMPARISON: [facility], CR, XR CHEST 1V, 05/04/2019, 18:25. FINDINGS: Image quality: Excellent. Lungs and pleura: Scattered subsegmental atelectasis and/or scarring. No focal consolidation. Airway thickening in keeping with nonspecific bronchitis and/or reactive airways disease. No pleural effusions or pneumothorax. Central and peripheral airways are patent and normal in caliber. No definite pulmonary edema is seen. This Mediastinum: Heart size is mildly enlarged. No pericardial effusion. No mediastinal adenopathy by size criteria. Thoracic aorta and central pulmonary arteries are normal in size. Esophagus is normal in caliber. No hiatal hernia. Bones and chest wall: Right breast prosthesis No suspicious bony lesions. No vertebral body compression fractures. No axillary or supraclavicular adenopathy by size criteria. Thyroid gland negative. Abdomen: Visualized upper abdominal solid organs and bowel loops appear normal in the absence of contrast. IMPRESSION: Airway thickening in keeping with nonspecific bronchitis and/or reactive airways disease. Scattered subsegmental atelectasis and/or scarring. No focal consolidation. Dictated by: Jose Khan M.D. on 05/04/2019 at 19:27 Approved by: Jose Khan M.D. on 05/04/2019 at 19:32 Discharge Plan Departure Patient Disposition: Home Clinical Impression: Suspected COVID-19 virus infection, Pneumonia, viral Discharge Date/Time: 05/04/19 20:13 Instructions: DI for Asthma -- Adult, DI for Viral Upper Respiratory Infection -- Adult Activity Restrictions/Additional Instructions: *You have been diagnosed with [ viral pneumonia, which based on your symptoms, labs and imaging is highly suspicious for coronavirus] *What to do: * per recommendations from the CDC and the [facility] Department of Health * stay home except to get medical care. Restrict activities outside your home, except for getting medical care. Do not go to work, school, or public areas. Avoid using public transportation, ride sharing, or taxis. * separate yourself from other people in your home. * call ahead before visiting your doctor * Wear a facemask * Cover your coughs and sneezes * Clean your hands often * Avoid sharing household items * Clean all high-touch services every day * Monitor your symptoms and seek prompt medical attention if your illness is worsening, particularly with difficulty in breathing. Discussed continuing home isolation * for individuals with symptoms who are confirmed or suspected cases of COVID-19 and are directed to care for themselves at home, discontinue home isolation under the following conditions: 1. At least 72 hours have passed since recovery, defined as resolution of fever without the use of fever reducing medications, and improvement in respiratory symptoms (cough, shortness of breath) AND, 2. At least 7 days have passed since symptoms 1st appeared Individuals with laboratory confirmed COVID-19 who have not had any symptoms may discontinue home isolation when at least 7 days have passed since the date of their 1st COVID-19 diagnostic test and have had no subsequent illness Prescriptions: New promethazine-codeine 6.25-10 mg/5 mL syrup 5 ml PO Q4-6H PRN (Reason: cough) Qty: 473 RF: 0 No Action levothyroxine [Synthroid] 88 mcg Tablet 88 mcg PO DAILY Qty: 0 RF: 0 montelukast 10 mg Tablet 10 mg PO BEDTIME Qty: 0 RF: 0 FLUTICASONE/SALMETEROL (Advair 100-50 Diskus) 1 dose IH BID Qty: 0 RF: 0 IPRATROPIUM BROMIDE (Atrovent) 0 ml RT * [place] DOSE/FREQUENCY Qty: 0 RF: 0 Sumatriptan Succinate (Imitrex) 0 mg PO * [place] DOSE/FREQUENCY Qty: 0 RF: 0 fexofenadine 180 MG tablet 180 mg PO BID Qty: 0 RF: 0 levalbuterol HCl [Xopenex] 1.25 MG/3 ML solution for nebulization 1.25 mg IH PRN Qty: 0 RF: 0 IBUPROFEN (#MOTRIN) 800 mg PO TID Qty: 0 RF: 0 VITAMIN D (Vitamin D3) 1,000 unit PO BID Qty: 0 RF: 0 tramadol 50 MG tablet 50 mg PO PRN Qty: 0 RF: 0 Ranitidine Hydrochloride (RANITIDINE) 150 mg PO BID Qty: 0 RF: 0 [RITALIN] 10 mg PO QID Qty: 0 RF: 0 ACETAMINOPHEN (TYLENOL ARTHRITIS) 650 mg PO TID Qty: 0 RF: 0 cyclobenzaprine 10 MG tablet 10 mg PO TIDP Qty: 0 RF: 0 Prochlorperazine Maleate 10 mg PO BIDP Qty: 0 RF: 0 oxycodone-acetaminophen [Percocet] 5 MG/325 MG tablet 1 tab PO Q4HP PRNQty: 15 RF: 0 prednisone 20 mg tablet RF: 0 famotidine 20 mg tablet RF: 0 benzonatate 100 mg capsule 200 mg PO TID PRN (Reason: Cough) RF: 0 omeprazole 20 mg capsule,delayed release(DR/EC) 20 mg PO BID RF: 0 budesonide [Pulmicort] 0.5 mg/2 mL suspension for nebulization RF: 0 doxycycline hyclate 100 mg tablet 100 mg PO BID RF: 0 albuterol sulfate 2.5 mg/0.5 mL solution for nebulization RF: 0 Symbicort 160-4.5 mcg/actuation HFA aerosol inhaler INHALATION RF: 0 albuterol sulfate [Ventolin HFA] 90 MCG/PUFF HFA aerosol inhaler 2 puff INH Q4HP PRN (Reason: Shortness Of Breath) RF: 0 Referrals: [facility] [Outside]
[2019-05-04 19:01] LABS: Add Manual Diff / Slide Review NO; Basophils Absolute Auto 0 /uL (0-100); Basophils Percent Auto 0.5 % (0-2); Eosinophils Absolute Auto 0 /uL (0-450); Hemoglobin 12.1 g/dL (12.0-16.0); Lymphocytes Absolute Auto 600 /uL (1100-4500); Lymphocytes Percent Auto 9.9 % (25-40); Mean Corpuscular HGB Conc 33.7 % (30-36); Mean Corpuscular Hemoglobin 31.7 PG (26-34); Mean Corpuscular Volume 94.2 fL (80-100); Monocytes Absolute Auto 200 /uL (0-900); Monocytes Percent Auto 3.6 % (3-14); Neutrophils Absolute Auto 5200 /uL (1500-7000); Platelet Count 320 X10^3/uL (150-400); Red Blood Cell Count 3.82 X10^6/uL (4.0-5.2); Red Cell Distribution Width 13.8 % (11.6-14.8)
[2019-05-04 19:13] LABS: D Dimer 289 ng/mL (<230); Lactate (Lactic Acid) 1.7 mmol/L (0.7-2.1)
[2019-05-04 19:14] LABS: Alanine Aminotransferase 162 IU/L (<35); Albumin 4.5 g/dL (3.5-5.0); Albumin Globulin Ratio 1.4 (1.0-2.8); Alkaline Phosphatase 110 U/L (38-126); Aspartate Aminotransferase 100 IU/L (14-36); BUN Creatinine Ratio 17.3 (6-22); Bilirubin Total 0.4 mg/dL (0.2-1.3); Blood Urea Nitrogen 13 mg/dL (7-17); Calcium 9.6 mg/dL (8.4-10.2); Carbon Dioxide 26 mmol/L (22-32); Chloride 106 mmol/L (98-107); Creatine Kinase 59 U/L (30-135); Estimated Glomerular Filt Rate > 60.0 mL/min (>60); Globulin 3.3 g/dL (1.7-4.1); Glucose 151 mg/dL (80-110); HEMOLYSIS < 15 (0-50); Sodium 139 mmol/L (137-145); Total Protein 7.8 g/dL (6.3-8.2)
[2019-05-04 19:16] LABS: C-Reactive Protein Quant 2.1 mg/dL (<1.0)
[2019-05-04 19:26] LABS: NT-proBNP (BNP-Adult 18+) 415 pg/mL (<125); Troponin I < 0.012 ng/mL (0.01-0.034)
[2019-05-04 19:31] LABS: Procalcitonin < 0.05 ng/mL (<0.5)
[2019-05-04 19:48] LABS: Ferritin 53 ng/mL (11-264)
[2019-05-04 19:54] VITALS: BP 143/83; PULSE 101; RESP 22; O2SAT 94
[2019-05-04 21:46] LABS: Influenza A - CEPHEID Flu A NEGATIVE (NEGATIVE); Influenza B - CEPHEID Flu B NEGATIVE (NEGATIVE)
[2019-05-06 05:38] LABS: COVID19 Sendout Not Detected (Not Detected)
== END 2019-05-04 20:13 | disposition home or self-care (01) ==
PROVIDERS: Emergency Provider Emergency Medicine
DX: J12.9 Viral pneumonia, unspecified (principal); R06.02 Shortness of breath; R05 Cough; R50.9 Fever, unspecified
CPT/HCPCS: 36415; 71045; 71250; 80053; 81001; 82550; 82728; 83605; 83880; 84145; 84484; 85025; 85379; 86140; 87040; 87502; 87635; 99284

== ENCOUNTER → 2020-10-20 10:49 | Outpatient (CLI) | payer MEDICARE, OTHER, SELFPAY ==
--- NOTE | 2020-10-20 | DI.MRI.S_ITS ---
BREAST MRI OF BOTH BREASTS: 10/20/2020 CLINICAL: History of malignancy. PROCEDURE: MR BREAST BI WO/W CON INDICATIONS: RIGHT BREAST IMPLANT IN SITU;HX OF MALIGNANCY TECHNIQUE: The patient was placed prone in a dedicated breast imaging coil. Precontrast axial STIR and 3D FLASH without fat saturation sequences were obtained. Both before and after bolus injection of contrast, sequential 1-minute axial 3D FLASH with fat saturation sequences for 3 time points, with subtraction images and maximum intensity projections (MIP's) generated. Delayed sagittal FLASH images with fat saturation were also obtained. Computer-aided detection, including computer algorithm analysis of MRI image data for lesion detection and characterization, pharmacokinetic analysis, with further physician review for interpretation, was performed. COMPARISON: [facility], CR, XR CHEST 1V, 05/04/2019, 18:25. [facility], CT, CT CHEST WO CON, 05/04/2019, 18:47. [facility], MR, BREAST BILAT W/O CONTRAST, 11/13/2013, 8:16. FINDINGS: Image quality: Excellent. There is mild background parenchymal enhancement. Right breast: The right breast implant appears intact with no evidence of rupture. The right breast has multiple subcentimeter simple cysts; otherwise there is no abnormal focus, mass, or abnormal enhancement. No axillary or internal mammary chain adenopathy. Left breast: The left breast has multiple subcentimeter cysts, otherwise there is no abnormal focus, mass, or abnormal enhancement. No axillary or internal mammary chain adenopathy. There are postoperative changes of the left breast, possibly prior TRAM flap. Miscellaneous: No skin thickening, edema, or precontrast high duct signal in either breast. IMPRESSION: BENIGN 1. Intact right breast implant. 2. Innumerable subcentimeter cysts in both breasts. 3. No abnormal enhancement. No evidence of malignancy. Electronically Signed By: Jordin Rosenthal acr/:10/20/2020 20:30:48 Entry: - 10/21/2020 09:31:31 ACR BI-RADS Category 2: Benign Finding(s) [id number]
== END ==
PROVIDERS: Referring Provider Family Medicine; Visit Provider Family Medicine
DX: Z85.3 Personal history of malignant neoplasm of breast (principal); Z98.82 Breast implant status; N60.01 Solitary cyst of right breast; N60.02 Solitary cyst of left breast
CPT/HCPCS: 77049

== ENCOUNTER 2021-01-06 08:34 | Emergency (ER) | payer MEDICARE, OTHER, SELFPAY ==
[2021-01-06 08:58] VITALS: BP 142/66; PULSE 75; RESP 15; TEMP 36.6; O2SAT 97; BMI 35.4
--- NOTE | 2021-01-06 09:33 | DI.RAD.S_ITS ---
PROCEDURE: XR KNEE RT 3V INDICATIONS: fall/injury/pain TECHNIQUE: 3 views of the knee were acquired. COMPARISON: [facility], CT, CT FACIAL BONES WO CON, 01/06/2021, 9:41. [facility], CT, CT HEAD/BRAIN WO CON, 01/06/2021, 9:41. [facility], CR, XR HIP W PEL IF DONE LT 2V, 01/06/2021, 9:28. [facility], CR, XR KNEE LT 3V, 01/06/2021, 9:28. [facility], CR, XR HAND LT MIN 3V, 01/06/2021, 9:28. [facility], CR, XR FOOT RT MIN 3V, 01/06/2021, 9:28. [facility], CR, KNEE 1-2 VIEWS LEFT, 04/12/2012, 16:01. FINDINGS: Bones: No fractures or dislocations. No suspicious bony lesions. Right knee arthroplasty hardware is seen, which appears intact. Soft tissues: There is a mild a joint effusion. No suspicious soft tissue calcifications. IMPRESSION: No acute bony abnormality is seen. Intact appearing hardware. Mild joint effusion. Dictated by: Jeremiah Roach M.D. on 01/06/2021 at 8:57 Approved by: Jeremiah Roach M.D. on 01/06/2021 at 8:58
--- NOTE | 2021-01-06 09:33 | DI.RAD.S_ITS ---
PROCEDURE: XR FOOT RT MIN 3V INDICATIONS: fall/injury/pain TECHNIQUE: 3 views of the foot were acquired. COMPARISON: [facility], CR, TOE MINIMUM 2 VIEWS RIGHT, 09/09/2013, 13:50. [facility], CT, CT FACIAL BONES WO CON, 01/06/2021, 9:41. [facility], CT, CT HEAD/BRAIN WO CON, 01/06/2021, 9:41. [facility], CR, XR KNEE LT 3V, 01/06/2021, 9:28. [facility], CR, XR KNEE RT 3V, 01/06/2021, 9:28. [facility], CR, XR HIP W PEL IF DONE LT 2V, 01/06/2021, 9:28. [facility], CR, XR HAND LT MIN 3V, 01/06/2021, 9:28. [facility], CR, FOOT 3V RIGHT, 11/09/2016, 11:29. FINDINGS: Bones: No fractures or dislocations. No suspicious bony lesions. Mild hallux valgus deformity is seen, with associated focal degenerative change of the 1st metatarsophalangeal joint. Milder degenerative changes are seen elsewhere. A moderate plantar calcaneal spur is seen. Soft tissues: No tibiotalar joint effusion. Achilles tendon appears normal. IMPRESSION: No acute plain film abnormality is identified. Dictated by: Jeremiah Roach M.D. on 01/06/2021 at 9:01 Approved by: Jeremiah Roach M.D. on 01/06/2021 at 9:03
--- NOTE | 2021-01-06 09:33 | DI.RAD.S_ITS ---
PROCEDURE: XR HIP W PEL IF DONE LT 2V INDICATIONS: fall/injury/pain TECHNIQUE: AP pelvis with lateral view(s) of the left hip(s). COMPARISON: [facility], CT, CT KIDNEY URETER BLADDER (KUB), 11/22/2018, 20:10. [facility], CT, CT FACIAL BONES WO CON, 01/06/2021, 9:41. [facility], CT, CT HEAD/BRAIN WO CON, 01/06/2021, 9:41. [facility], CR, XR KNEE LT 3V, 01/06/2021, 9:28. [facility], CR, XR KNEE RT 3V, 01/06/2021, 9:28. [facility], CR, XR HAND LT MIN 3V, 01/06/2021, 9:28. [facility], CR, XR FOOT RT MIN 3V, 01/06/2021, 9:28. FINDINGS: Bones: No fractures or dislocations. Pelvic ring appears intact. No suspicious bony lesions. Mild, age-appropriate degenerative changes are seen. A stable os acetabulum is incidentally noted on the left. Soft tissues: The visualized bowel gas pattern is normal. No suspicious soft tissue calcifications. IMPRESSION: Negative for acute fracture. Degenerative changes are seen. Dictated by: Jeremiah Roach M.D. on 01/06/2021 at 8:59 Approved by: Jeremiah Roach M.D. on 01/06/2021 at 9:00
--- NOTE | 2021-01-06 09:33 | DI.RAD.S_ITS ---
PROCEDURE: XR KNEE LT 3V INDICATIONS: fall/injury/pain TECHNIQUE: 3 views of the knee were acquired. COMPARISON: [facility], CT, CT FACIAL BONES WO CON, 01/06/2021, 9:41. [facility], CT, CT HEAD/BRAIN WO CON, 01/06/2021, 9:41. [facility], CR, XR HIP W PEL IF DONE LT 2V, 01/06/2021, 9:28. [facility], CR, XR KNEE RT 3V, 01/06/2021, 9:28. [facility], CR, XR HAND LT MIN 3V, 01/06/2021, 9:28. [facility], CR, XR FOOT RT MIN 3V, 01/06/2021, 9:28. [facility], CR, KNEE 1-2 VIEWS LEFT, 04/12/2012, 16:01. FINDINGS: Bones: No fractures or dislocations. No suspicious bony lesions. Intact appearing, unremarkable left knee arthroplasty hardware is seen. Soft tissues: There is a mild left knee joint effusion. No suspicious soft tissue calcifications. IMPRESSION: Negative for fracture. Unremarkable appearing hardware. Dictated by: Jeremiah Roach M.D. on 01/06/2021 at 9:01 Approved by: Jeremiah Roach M.D. on 01/06/2021 at 9:01
--- NOTE | 2021-01-06 09:33 | DI.CT.S_ITS ---
PROCEDURE: CT HEAD/BRAIN WO CON INDICATIONS: fall/injury/pain TECHNIQUE: Noncontrast 4.5 mm thick angled axial sections acquired from the foramen magnum to the vertex, with coronal and sagittal reformats. For radiation dose reduction, the following was used: automated exposure control, adjustment of mA and/or kV according to patient size. COMPARISON: None. FINDINGS: Image quality: Excellent. CSF spaces: Basal cisterns are patent. No extra-axial fluid collections. The ventricles are symmetric in size and shape. Brain: No intracranial bleeds or masses. There is cerebral volume loss for age, with resultant ventricular and sulcal prominence. There are periventricular and deep white matter chronic small vessel ischemic changes. There is intracranial internal carotid artery atherosclerosis. Skull and face: Calvarium and visualized facial bones appear intact, without suspicious lesions. Sinuses: Visualized sinuses and mastoids are clear. IMPRESSION: 1. CT head without acute intracranial abnormalities or acute calvarial fractures. 2. Age-related senescent changes and sequela of chronic small vessel ischemic disease. Dictated by: Bryan Fernandez M.D. on 01/06/2021 at 9:50 Approved by: Bryna Fernandez M.D. on 01/06/2021 at 9:52
--- NOTE | 2021-01-06 09:34 | DI.RAD.S_ITS ---
PROCEDURE: XR HAND LT MIN 3V INDICATIONS: fall/pain TECHNIQUE: 3 views of the hand(s) acquired. COMPARISON: [facility], CT, CT FACIAL BONES WO CON, 01/06/2021, 9:41. [facility], CT, CT HEAD/BRAIN WO CON, 01/06/2021, 9:41. [facility], CR, XR KNEE LT 3V, 01/06/2021, 9:28. [facility], CR, XR KNEE RT 3V, 01/06/2021, 9:28. [facility], CR, XR HIP W PEL IF DONE LT 2V, 01/06/2021, 9:28. [facility], CR, XR FOOT RT MIN 3V, 01/06/2021, 9:28. FINDINGS: Bones: No acute fractures or dislocations. Scrutiny is given to the thumb and no fractures or dislocations are seen. There is a remote, unfused ulnar styloid fracture. Carpal bones are normally aligned. No suspicious bony lesions. Mild underlying degenerative changes are seen. Soft tissues: No suspicious soft tissue calcifications. IMPRESSION: Negative for acute fracture. Age-appropriate bony degenerative changes are seen. Dictated by: Jeremiah Roach M.D. on 01/06/2021 at 9:03 Approved by: Jeremiah Roach M.D. on 01/06/2021 at 9:05
--- NOTE | 2021-01-06 09:36 | ED_ITS ---
HPI - Fall General Chief Complaint: Fall Stated Complaint: FELL LAST NIGHT AND IN PAIN Time Seen by Provider: 01/06/21 09:24 Source: patient Mode of arrival: Ambulatory History of Present Illness HPI Narrative: Patient fell in [place] parking lot yesterday. Fell forward. History of bilateral knee replacements years ago. She landed on her knees. Stubbed her right foot/toe on the curb. Fell on her left hand. Hit her face on the ground. No loss of consciousness. No nausea vomiting no confusion no vision changes. Patient not on blood thinner. Denies any neck pain or back pain. Complains of left hip pain as well. She was in socks removed. Patient in gown. Related Data Home Medications Medication Instructions Recorded Confirmed FLUTICASONE/SALMETEROL (Advair 1 dose IH BID #0 01/14/10 100-50 Diskus) IPRATROPIUM BROMIDE (Atrovent) 0 ml RT * DOSE/FREQUENCY #0 01/14/10 Sumatriptan Succinate (Imitrex) 0 mg PO * DOSE/FREQUENCY #0 01/14/10 levothyroxine 88 mcg tablet 88 mcg PO DAILY #0 01/14/10 02/12/19 (Synthroid) montelukast 10 mg tablet 10 mg PO BEDTIME #0 01/14/10 02/12/19 IBUPROFEN (#MOTRIN) 800 mg PO TID #0 08/17/10 VITAMIN D (Vitamin D3) 1,000 unit PO BID #0 08/17/10 fexofenadine 180 mg tablet 180 mg PO BID #0 08/17/10 levalbuterol HCl 1.25 mg/3 mL 1.25 mg IH PRN #0 08/17/10 solution for nebulization (Xopenex) Ranitidine Hydrochloride 150 mg PO BID #0 10/20/11 (RANITIDINE) tramadol 50 mg tablet 50 mg PO PRN #0 10/20/11 [RITALIN] 10 mg PO QID #0 11/10/11 ACETAMINOPHEN (TYLENOL ARTHRITIS) 650 mg PO TID #0 03/29/12 Prochlorperazine Maleate 10 mg PO BIDP #0 04/12/12 cyclobenzaprine 10 mg tablet 10 mg PO TIDP #0 04/12/12 albuterol sulfate 2.5 mg/0.5 mL 02/12/19 solution for nebulization albuterol sulfate 90 mcg/actuation 2 puff INH Q4HP PRN 02/12/19 02/12/19 aerosol inhaler (Ventolin HFA) benzonatate 100 mg capsule 200 mg PO TID PRN 02/12/19 02/12/19 budesonide 0.5 mg/2 mL suspension 02/12/19 for nebulization (Pulmicort) budesonide-formoterol HFA 160 INHALATION 02/12/19 mcg-4.5 mcg/actuation aerosol inhaler (Symbicort) doxycycline hyclate 100 mg tablet 100 mg PO BID 02/12/19 02/12/19 famotidine 20 mg tablet 02/12/19 omeprazole 20 mg capsule,delayed 20 mg PO BID 02/12/19 02/12/19 release prednisone 20 mg tablet 02/12/19 Previous Rx's Medication Instructions Recorded oxycodone-acetaminophen 5 mg-325 1 tab PO Q4HP PRN #15 tab 12/11/16 mg tablet (Percocet) promethazine 6.25 mg-codeine 10 5 ml PO Q4-6H PRN #473 ml 05/03/ mg/5 mL syrup Allergies Allergy/AdvReac Type Severity Reaction Status Date / Time bacitracin Allergy Severe Redness of Verified 01/06/21 09:04 [From Neosporin Skin ([id number])] neomycin Allergy Severe Redness of Verified 01/06/21 09:04 [From Neosporin Skin ([id number])] polymyxin B Allergy Severe Redness of Verified 01/06/21 09:04 [From Neosporin Skin ([id number])] adhesive tape Allergy Mild blisters, Verified 01/06/21 09:04 paper tape ok cephradine [From Velosef] Allergy Mild Hives Verified 01/06/21 09:04 Sulfa (Sulfonamide Allergy Mild Hives Verified 01/06/21 09:04 Antibiotics) gabapentin [GABAPENTIN] Allergy Unknown Verified 01/06/21 09:04 latex [LATEX] Allergy Unknown Verified 01/06/21 09:04 Penicillins [PENICILLINS] Allergy Unknown Verified 01/06/21 09:04 propoxyphene AdvReac Mild itching, Verified 01/06/21 09:04 n/v MULTIPLE METAL ALLERGIES Allergy Unknown Uncoded 05/04/19 17:58 Review of Systems Review of Systems Narrative: GENERAL: Denies chills, fatigue, malaise, fever, sweats. HEENT: Denies sinus pain, ear pain, sore throat RESPIRATORY: Denies dyspnea, cough CARDIOVASCULAR: Denies chest pain, palpitations GASTROINTESTINAL: Denies nausea, vomiting, abdominal pain : Denies dysuria, frequency, hematuria MUSCULOSKELETAL: Positive formuscle or bony pain SKIN: Denies rash, skin lesions NEUROLOGIC: Denies weakness, numbness ROS Unobtainable: All systems reviewed & are unremarkable except as noted in HPI and below Patient History Social History Smoking Status: Never smoker Smoking Status: Never smoker alcohol intake frequency: holidays/special occasions only Substance Use Type: does not use Exam Narrative Exam Narrative: GENERAL: in no distress, not toxic not dyspneic HEAD: Normocephalic. Nontender scalp and skull no crepitus or step-off. EYES: Pupils equal round No scleral icterus. There is tenderness and bruising left superior periorbital. EOMI ENT: Mucous membranes moist. NECK: Trachea midline. No midline tenderness or step-off of the cervical thoracic or lumbar spine CARDIOVASCULAR: Regular rate and rhythm without murmurs RESPIRATORY: Clear to auscultation. Breath sounds equal bilaterally. No wheezes, rales, or rhonchi. GASTROINTESTINAL: Abdomen soft, non-tender EXTREMITIES: No gross deformities. Examination left hand. Mild tenderness to the proximal thenar eminence with bruising. Mild snuffbox tenderness. However able to make okay sign. 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 Light touch intact to thumb and fingers. Able to bring thumb across the palm. Does have pain with this. Examination left hip. Nontender. Able to stand and bear weight. Able to flex and extend without difficulty. Left leg is not shortened or rotated. Examination bilateral knees. No skin injury. Able to flex and extend. Pale to bear weight. Able to stand and walk. Not antalgic. No gross deformity Examination right foot. Foot is warm soft being strong pedal pulse light touch intact to foot and toes. No gross deformity. Mild tenderness to the 1st MTP joint. No skin injury. No bruising. Toenail intact. Light touch intact to foot and toes. BACK: No flank tenderness. NEURO: AOx4. Clear speech no facial droop light touch intact to bilateral face hands and legs. 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 SKIN: Warm and dry PSYCH: Not anxious, is cooperative Initial Vital Signs Initial Vital Signs: Vital Signs Temperature 97.9 F 01/06/21 08:58 Pulse Rate 75 01/06/21 08:58 Respiratory Rate 15 01/06/21 08:58 Blood Pressure 142/66 H 01/06/21 08:58 Pulse Oximetry 97 01/06/21 08:58 Course Course Course Narrative: No new issues during course of stay Orders Ordered: ED Orders 01/06/21 09:33 CT head/brain wo con Stat XR foot RT min 3V Stat XR hip w pel if done LT 2V Stat XR knee LT 3V Stat XR knee RT 3V Stat 01/06/21 09:34 XR hand LT min 3V Stat 01/06/21 09:43 CT facial bones wo con Stat Reevaluation(s) Reevaluation #1: Reviewed results with patient and agrees with treatment and follow-up with orthopedics or her family doctor. Pain is controlled. Time: 10:42 Vital Signs Vital signs: Vital Signs - 8 hr 01/06/21 08:58 01/06/21 11:03 Temperature 97.9 F Pulse Rate 75 65 Respiratory Rate 15 18 Blood Pressure 142/66 H 167/77 H Pulse Oximetry 97 99 MDM - Fall Imaging Data CT scan - head: Radiologist's Impression: [address] [address] [address] Scan Report Signed Patient: Rivka Ye MR#: [id number] : 1955 Acct:[id number] Age/Sex: 65 / F Date of Service: 01/06/21 Loc: ED Accession Number: [id number] ?? Procedure: CT head/brain wo con Ordering Provider: Shyam Alegria MD PROCEDURE:? CT HEAD/BRAIN WO CON ? INDICATIONS:? fall/injury/pain ? TECHNIQUE:? Noncontrast 4.5 mm thick angled axial sections acquired from the foramen magnum to the vertex, with coronal and sagittal reformats.? For radiation dose reduction, the following was used:? automated exposure control, adjustment of mA and/or kV according to patient size.? ? COMPARISON:? None. ? FINDINGS:? Image quality:? Excellent.? ? CSF spaces:? Basal cisterns are patent.? No extra-axial fluid collections.? The ventricles are symmetric in size and shape.? ? Brain:? No intracranial bleeds or masses.? There is cerebral volume loss for age, with resultant ventricular and sulcal prominence.? There are periventricular and deep white matter chronic small vessel ischemic changes.? There is intracranial internal carotid artery atherosclerosis.? ? Skull and face:? Calvarium and visualized facial bones appear intact, without suspicious lesions.? ? Sinuses:? Visualized sinuses and mastoids are clear.? ? IMPRESSION:? 1. CT head without acute intracranial abnormalities or acute calvarial fractures. ? 2. Age-related senescent changes and sequela of chronic small vessel ischemic disease. ? ? ? Dictated by: Bryan Fernandez M.D. on 01/06/2021 at 9:50 ? ? Approved by: Bryan Fernandez M.D. on 01/06/2021 at 9:52 ? CT facial bone: Radiologist's Impression: [place] [address] CT Scan Report Signed Patient: Rivka Ye MR#: [id number] : 1955 Acct:[id number] Age/Sex: 65 / F Date of Service: 01/06/21 Loc: ED Accession Number: [id number] ?? Procedure: CT facial bones wo con Ordering Provider: Shyam Alegria MD PROCEDURE:? CT FACIAL BONES WO CON ? INDICATIONS:? fall/injury/pain ? TECHNIQUE:? Noncontrast 2.5 mm thick axial images acquired from the mandible through the frontal sinuses, with coronal and sagittal reformatting.? For radiation dose reduction, the following was used:? automated exposure control, adjustment of mA and/or kV according to patient size.? ? COMPARISON:? None. ? FINDINGS:? Image quality:? Excellent.? ? Bones and teeth:? Orbital gutierrez are intact.? Sinus gutierrez show no fracture or deformity.? Nasal bones and septum are intact.? Visualized portions of the mandible demonstrate no fractures or subluxation.? Zygomatic arches are intact.? Pterygoid plates are intact.? Visualized portions of the skull base and auditory canals are intact.? Degenerative changes of the bilateral temporomandibular joints more pronounced on the left. ? Sinuses:? Paranasal sinuses are aerated, without fluid levels, mucosal thickening, or mucoceles.? Mastoid air cells are aerated.? ? Soft tissues:? Minimal periorbital soft tissue swelling more pronounced on right, especially near the bridge of the nose.? No underlying fracture seen.? No suspicious masses, or fluid collections.? No enlarged lymph nodes.? No soft tissue lacerations or debris.? ? Vascular:? Visualized vascular structures appear normal in the absence of contrast.? Bony vascular foramina and canals are intact.? ? IMPRESSION:? ? Minimal periorbital soft tissue swelling slightly more pronounced right near the bridge of the nose without evidence for underlying facial fractures.? ? ? Dictated by: Bryan Fernandez M.D. on 01/06/2021 at 9:52 ? ? Approved by: Bryan Fernandez M.D. on 01/06/2021 at 9:59 ? X-ray knee: Radiologist's Impression: [place] [address] XRay Report Signed Patient: Rivka Ye MR#: [id number] : 1955 Acct:[id number] Age/Sex: 65 / F Date of Service: 01/06/21 Loc: ED Accession Number: [id number] ?? Procedure: XR knee RT 3V Ordering Provider: Shyam Alegria MD PROCEDURE:? XR KNEE RT 3V ? INDICATIONS:? fall/injury/pain ? TECHNIQUE:? 3 views of the knee were acquired.? ? COMPARISON:? [facility], CT, CT FACIAL BONES WO CON, 01/06/2021, 9:41.? [facility], CT, CT HEAD/BRAIN WO CON, 01/06/2021, 9:41.? [facility], CR, XR HIP W PEL IF DONE LT 2V, 01/06/2021, 9:28.? [facility], CR, XR KNEE LT 3V, 01/06/2021, 9:28.? [facility], CR, XR HAND LT MIN 3V, 01/06/2021, 9:28.? [facility], CR, XR FOOT RT MIN 3V, 01/06/2021, 9:28.? [facility], CR, KNEE 1-2 VIEWS LEFT, 04/12/2012, 16:01. ? FINDINGS:? ? Bones:? No fractures or dislocations.? No suspicious bony lesions.? Right knee arthroplasty hardware is seen, which appears intact. ? Soft tissues:? There is a mild a joint effusion.? No suspicious soft tissue calcifications.? ? ? IMPRESSION:? No acute bony abnormality is seen. ? Intact appearing hardware. ? Mild joint effusion. ? ? Dictated by: Jeremiah Raoch M.D. on 01/06/2021 at 8:57 ? ? Approved by: Jeremiah Roach M.D. on 01/06/2021 at 8:58 ? X-ray 2nd knee: Radiologist's Impression: [address] [address] XRay Report Signed Patient: Rivka Ye MR#: [id number] : 1955 Acct:[id number] Age/Sex: 65 / F Date of Service: 01/06/21 Loc: ED Accession Number: [id number] ?? Procedure: XR knee LT 3V Ordering Provider: Shyam Alegria MD PROCEDURE:? XR KNEE LT 3V ? INDICATIONS:? fall/injury/pain ? TECHNIQUE:? 3 views of the knee were acquired.? ? COMPARISON:? [facility], CT, CT FACIAL BONES WO CON, 01/06/2021, 9:41.? [facility], CT, CT HEAD/BRAIN WO CON, 01/06/2021, 9:41.? [facility], CR, XR HIP W PEL IF DONE LT 2V, 01/06/2021, 9:28.? [facility], CR, XR KNEE RT 3V, 01/06/2021, 9:28.? [facility], CR, XR HAND LT MIN 3V, 01/06/2021, 9:28.? [facility], CR, XR FOOT RT MIN 3V, 01/06/2021, 9:28.? [facility], CR, KNEE 1-2 VIEWS LEFT, 07/2012, 16:01. ? FINDINGS:? ? Bones:? No fractures or dislocations.? No suspicious bony lesions.? Intact appearing, unremarkable left knee arthroplasty hardware is seen. ? Soft tissues:? There is a mild left knee joint effusion.? No suspicious soft tissue calcifications.? ? ? IMPRESSION:? Negative for fracture. ? Unremarkable appearing hardware.? ? ? Dictated by: Jeremiah Roach M.D. on 01/06/2021 at 9:01 ? ? Approved by: Jeremiah Roach M.D. on 01/06/2021 at 9:01 ? Extremity x-ray #1: Radiologist's Impression: [address] [address] XRay Report Signed Patient: Rivka Ye MR#: [id number] : 1955 Acct:[id number] Age/Sex: 65 / F Date of Service: 01/06/21 Loc: ED Accession Number: [id number] ?? Procedure: XR hand LT min 3V Ordering Provider: Shyam Alegria MD PROCEDURE:? XR HAND LT MIN 3V ? INDICATIONS:? fall/pain ? TECHNIQUE:? 3 views of the hand(s) acquired.? ? COMPARISON:? [facility], CT, CT FACIAL BONES WO CON, 01/06/2021, 9:41.? [facility], CT, CT HEAD/BRAIN WO CON, 01/06/2021, 9:41.? [facility], CR, XR KNEE LT 3V, 01/06/2021, 9:28.? [facility], CR, XR KNEE RT 3V, 01/06/2021, 9:28.? [facility], CR, XR HIP W PEL IF DONE LT 2V, 01/06/2021, 9:28.? [facility], CR, XR FOOT RT MIN 3V, 01/06/2021, 9:28. ? FINDINGS:? ? Bones:? No acute fractures or dislocations.? Scrutiny is given to the thumb and no fractures or dislocations are seen.? There is a remote, unfused ulnar styloid fracture.? Carpal bones are normally aligned.? No suspicious bony lesions.? Mild underlying degenerative changes are seen. ? Soft tissues:? No suspicious soft tissue calcifications.? IMPRESSION:? Negative for acute fracture. ? Age-appropriate bony degenerative changes are seen.? ? ? Dictated by: Jeremiah Roach M.D. on 01/06/2021 at 9:03 ? ? Approved by: Jeremiah Roach M.D. on 01/06/2021 at 9:05 ? Extremity x-ray #2: Radiologist's Impression: [address] [address] XRay Report Signed Patient: Rivka Ye MR#: [id number] : 1955 Acct:[id number] Age/Sex: 65 / F Date of Service: 01/06/21 Loc: ED Accession Number: [id number] ?? Procedure: XR hip w pel if done LT 2V Ordering Provider: Shyam Alegria MD PROCEDURE:? XR HIP W PEL IF DONE LT 2V ? INDICATIONS:? fall/injury/pain ? TECHNIQUE:? AP pelvis with lateral view(s) of the left hip(s).? ? COMPARISON:? [facility], CT, CT KIDNEY URETER BLADDER (KUB), 11/22/2018, 20:10.? [facility], CT, CT FACIAL BONES WO CON, 01/06/2021, 9:41.? [facility], CT, CT HEAD/BRAIN WO CON, 01/06/2021, 9:41.? [facility], CR, XR KNEE LT 3V, 01/06/2021, 9:28.? [facility], CR, XR KNEE RT 3V, 01/06/2021, 9:28.? [facility], CR, XR HAND LT MIN 3V, 01/06/2021, 9:28.? [facility], CR, XR FOOT RT MIN 3V, 01/06/2021, 9:28. ? FINDINGS:? ? Bones:? No fractures or dislocations.? Pelvic ring appears intact.? No suspicious bony lesions.? ? Mild, age-appropriate degenerative changes are seen.? A stable os acetabulum is incidentally noted on the left. ? Soft tissues:? The visualized bowel gas pattern is normal.? No suspicious soft tissue calcifications.? ? ? IMPRESSION:? Negative for acute fracture. ? Degenerative changes are seen. ? ? ? Dictated by: Jeremiah Roach M.D. on 01/06/2021 at 8:59 ? ? Approved by: Jeremiah Roach M.D. on 01/06/2021 at 9:00 ? Extremity x-ray #3: Radiologist's Impression: [address] [address] XRay Report Signed Patient: Rivka Ye MR#: [id number] : 1955 Acct:[id number] Age/Sex: 65 / F Date of Service: 01/06/21 Loc: ED Accession Number: [id number] ?? Procedure: XR foot RT min 3V Ordering Provider: Shyam Alegria MD PROCEDURE:? XR FOOT RT MIN 3V ? INDICATIONS:? fall/injury/pain ? TECHNIQUE:? 3 views of the foot were acquired.? ? COMPARISON:? [facility], CR, TOE MINIMUM 2 VIEWS RIGHT, 09/09/2013, 13:50.? [facility], CT, CT FACIAL BONES WO CON, 01/06/2021, 9:41.? [facility], CT, CT HEAD/BRAIN WO CON, 01/06/2021, 9:41.? [facility], CR, XR KNEE LT 3V, 01/06/2021, 9:28.? [facility], CR, XR KNEE RT 3V, 01/06/2021, 9:28.? [facility], CR, XR HIP W PEL IF DONE LT 2V, 01/06/2021, 9:28.? [facility], CR, XR HAND LT MIN 3V, 01/06/2021, 9:28.? [facility], CR, FOOT 3V RIGHT, 11/09/2016, 11:29. ? FINDINGS:? ? Bones:? No fractures or dislocations.? No suspicious bony lesions.? Mild hallux valgus deformity is seen, with associated focal degenerative change of the 1st metatarsophalangeal joint.? Milder degenerative changes are seen elsewhere.? A moderate plantar calcaneal spur is seen.? ? Soft tissues:? No tibiotalar joint effusion.? Achilles tendon appears normal.? ? ? IMPRESSION:? No acute plain film abnormality is identified. ? ? Dictated by: Jeremiah Roach M.D. on 01/06/2021 at 9:01 ? ? Approved by: Jeremiah Roach M.D. on 01/06/2021 at 9:03 ? MDM Narrative Medical decision making narrative: Appropriate for discharge home examined imaging reassuring. Return precautions reviewed with patient. Referrals given. Patient agrees for discharge. Discharge Plan Departure Patient Disposition: Home Clinical Impression: Contusion of face, Contusion of hand, left, Strain of left hip, Contusion of left knee, Strain of great toe, right Instructions: DI for Contusion, DI for Closed Head Injury, DI for Hip Pain Activity Restrictions/Additional Instructions: May use cool packs to sore areas 20 minutes at time of for pain and swelling. See family doctor within a week for recheck. Return if worsening questions or concerns. May continue Tylenol or ibuprofen for pain. Prescriptions: No Action levothyroxine [Synthroid] 88 mcg Tablet 88 mcg PO DAILY Qty: 0 0RF montelukast 10 mg Tablet 10 mg PO BEDTIME Qty: 0 0RF FLUTICASONE/SALMETEROL (Advair 100-50 Diskus) 1 dose IH BID Qty: 0 0RF IPRATROPIUM BROMIDE (Atrovent) 0 ml RT * UK DOSE/FREQUENCY Qty: 0 0RF Sumatriptan Succinate (Imitrex) 0 mg PO * [place] DOSE/FREQUENCY Qty: 0 0RF fexofenadine 180 MG tablet 180 mg PO BID Qty: 0 0RF levalbuterol HCl [Xopenex] 1.25 MG/3 ML solution for nebulization 1.25 mg IH PRN Qty: 0 0RF IBUPROFEN (#MOTRIN) 800 mg PO TID Qty: 0 0RF VITAMIN D (Vitamin D3) 1,000 unit PO BID Qty: 0 0RF tramadol 50 MG tablet 50 mg PO PRN Qty: 0 0RF Ranitidine Hydrochloride (RANITIDINE) 150 mg PO BID Qty: 0 0RF [RITALIN] 10 mg PO QID Qty: 0 0RF ACETAMINOPHEN (TYLENOL ARTHRITIS) 650 mg PO TID Qty: 0 0RF cyclobenzaprine 10 MG tablet 10 mg PO TIDP Qty: 0 0RF Prochlorperazine Maleate 10 mg PO BIDP Qty: 0 0RF oxycodone-acetaminophen [Percocet] 5 MG/325 MG tablet 1 tab PO Q4HP PRNQty: 15 0RF promethazine-codeine 6.25-10 mg/5 mL syrup 5 ml PO Q4-6H PRN (Reason: cough) Qty: 473 0RF prednisone 20 mg tablet 0RF famotidine 20 mg tablet 0RF benzonatate 100 mg capsule 200 mg PO TID PRN (Reason: Cough) 0RF omeprazole 20 mg capsule,delayed release(DR/EC) 20 mg PO BID 0RF budesonide [Pulmicort] 0.5 mg/2 mL suspension for nebulization 0RF doxycycline hyclate 100 mg tablet 100 mg PO BID 0RF albuterol sulfate 2.5 mg/0.5 mL solution for nebulization 0RF Symbicort 160-4.5 mcg/actuation HFA aerosol inhaler INHALATION 0RF albuterol sulfate [Ventolin HFA] 90 MCG/PUFF HFA aerosol inhaler 2 puff INH Q4HP PRN (Reason: Shortness Of Breath) 0RF Referrals: Facundo Sigala MD [Physician] -
--- NOTE | 2021-01-06 09:43 | DI.CT.S_ITS ---
PROCEDURE: CT FACIAL BONES WO CON INDICATIONS: fall/injury/pain TECHNIQUE: Noncontrast 2.5 mm thick axial images acquired from the mandible through the frontal sinuses, with coronal and sagittal reformatting. For radiation dose reduction, the following was used: automated exposure control, adjustment of mA and/or kV according to patient size. COMPARISON: None. FINDINGS: Image quality: Excellent. Bones and teeth: Orbital gutierrez are intact. Sinus gutierrez show no fracture or deformity. Nasal bones and septum are intact. Visualized portions of the mandible demonstrate no fractures or subluxation. Zygomatic arches are intact. Pterygoid plates are intact. Visualized portions of the skull base and auditory canals are intact. Degenerative changes of the bilateral temporomandibular joints more pronounced on the left. Sinuses: Paranasal sinuses are aerated, without fluid levels, mucosal thickening, or mucoceles. Mastoid air cells are aerated. Soft tissues: Minimal periorbital soft tissue swelling more pronounced on right, especially near the bridge of the nose. No underlying fracture seen. No suspicious masses, or fluid collections. No enlarged lymph nodes. No soft tissue lacerations or debris. Vascular: Visualized vascular structures appear normal in the absence of contrast. Bony vascular foramina and canals are intact. IMPRESSION: Minimal periorbital soft tissue swelling slightly more pronounced right near the bridge of the nose without evidence for underlying facial fractures. Dictated by: Bryan Fernandez M.D. on 01/06/2021 at 9:52 Approved by: Bryan Fernandez M.D. on 01/06/2021 at 9:59
[2021-01-06 11:03] VITALS: BP 167/77; PULSE 65; RESP 18; O2SAT 99
== END 2021-01-06 11:04 | disposition home or self-care (01) ==
PROVIDERS: Emergency Provider Emergency Medicine
DX: S76.012A Strain of muscle, fascia and tendon of left hip, initial encounter (principal); S96.911A Strain of unspecified muscle and tendon at ankle and foot level, right foot, initial encounter; S00.83XA Contusion of other part of head, initial encounter; S60.222A Contusion of left hand, initial encounter; S80.02XA Contusion of left knee, initial encounter; M79.671 Pain in right foot; M25.561 Pain in right knee; W18.30XA Fall on same level, unspecified, initial encounter
CPT/HCPCS: 70450; 70486; 73130; 73502; 73562; 73630; 99284

== ENCOUNTER 2023-10-12 04:28 | Emergency (ER) | payer MEDICARE, OTHER, SELFPAY ==
--- NOTE | 2023-10-12 | DI.CT.S_ITS ---
PROCEDURE: CT HEAD/BRAIN WO CON INDICATIONS: fell, hit head TECHNIQUE: Noncontrast 4.5 mm thick angled axial sections acquired from the foramen magnum to the vertex, with coronal and sagittal reformats. For radiation dose reduction, the following was used: automated exposure control, adjustment of mA and/or kV according to patient size. COMPARISON: [facility], CT, CT HEAD/BRAIN WO CON, 01/06/2021, 9:41. FINDINGS: Image quality: Diagnostic. CSF spaces: Basal cisterns are patent. No extra-axial fluid collections. Ventricles are normal in size and shape. Brain: No midline shift. No intracranial masses or hemorrhage. José-white matter interface is normal. Skull and face: Calvarium and visualized facial bones are intact, without suspicious lesions. Sinuses: Visualized sinuses and mastoids are clear. IMPRESSION: No acute intracranial pathology. The above findings are concordant with preliminary report. Dictated by: Pastora Sarkar M.D. on 10/12/2023 at 7:50 Approved by: Pastora Sarkar M.D. on 10/12/2023 at 7:55
--- NOTE | 2023-10-12 | DI.CT.S_ITS ---
PROCEDURE: CT CERVICAL SPINE WO CON INDICATIONS: fell, hit head TECHNIQUE: Noncontrast 3 mm thick sections acquired from the skull base to the T4 level. Sagittal and coronal reformats were then constructed. For radiation dose reduction, the following was used: automated exposure control, adjustment of mA and/or kV according to patient size. COMPARISON: [facility], CT, CT FACIAL BONES WO CON, 10/12/2023, 4:54. [facility], CT, CT HEAD/BRAIN WO CON, 10/12/2023, 4:54. Outside Film, CT, CT SINUS WITHOUT CONTRAST, 05/26/2022, 14:08. [facility], CT, CT FACIAL BONES WO CON, 01/06/2021, 9:41. FINDINGS: Image quality: Excellent. Bones: No fractures or dislocations. Visualized superior ribs are intact. Multilevel degenerative changes. Soft tissues: Prevertebral soft tissues are normal in thickness. No paravertebral hematomas. No apical pneumothoraces. IMPRESSION: No displaced fracture or traumatic subluxation. The above findings are concordant with preliminary report. Dictated by: Pastora Sarkar M.D. on 10/12/2023 at 7:56 Approved by: Pastora Sarkar M.D. on 10/12/2023 at 7:57
--- NOTE | 2023-10-12 | DI.CT.S_ITS ---
PROCEDURE: CT FACIAL BONES WO CON INDICATIONS: fall TECHNIQUE: Noncontrast 2.5 mm thick axial images acquired from the mandible through the frontal sinuses, with coronal and sagittal reformatting. For radiation dose reduction, the following was used: automated exposure control, adjustment of mA and/or kV according to patient size. COMPARISON: [facility], CT, CT FACIAL BONES WO CON, 01/06/2021, 9:41. FINDINGS: Image quality: Excellent. Bones and teeth: Orbital gutierrez are intact. Sinus gutierrez show no fracture or deformity. Nasal bones and septum are intact. Visualized portions of the mandible demonstrate no fractures or subluxation. Zygomatic arches are intact. Pterygoid plates are intact. Visualized portions of the skull base and auditory canals are intact. Sinuses: Paranasal sinuses are aerated, without fluid levels, mucosal thickening, or mucoceles. Mastoid air cells are aerated. Soft tissues: No edema, masses, or fluid collections. No enlarged lymph nodes. No soft tissue lacerations or debris. Vascular: Visualized vascular structures appear normal in the absence of contrast. Bony vascular foramina and canals are intact. IMPRESSION: No visualized fractures. The above findings are concordant with preliminary report. Dictated by: Pastora Sarkar M.D. on 10/12/2023 at 7:55 Approved by: Pastora Sarkar M.D. on 10/12/2023 at 7:56
--- NOTE | 2023-10-12 06:17 | ED.HA ---
HPI - Headache General Chief Complaint: Headache Stated Complaint: fall hit head 4days ago now has headaches Time Seen by Provider: 10/12/23 06:14 History of Present Illness HPI Narrative: 68-year-old female with history hypothyroidism presents by private vehicle for progressive headache over the last 4 days.? Patient states that she suffers from night terrors and 4 days ago she fell out of bed 3 different times due to these night terrors. 2 of these times she struck her head, once on the left side of her head, once on the right side of her head. The 3rd time patient struck her L cheekbone against a hard object.? Patient states that despite applying ice and taking Tylenol her headache seems to be getting worse, and so this morning decided to come to the ED for evaluation.? Patient also reports associated left eye blurred vision Related Data Home Medications Medication Instructions Recorded Confirmed FLUTICASONE/SALMETEROL (Advair 1 dose IH BID ##0 01/14/10 100-50 Diskus) IPRATROPIUM BROMIDE (Atrovent) 0 ml RT * DOSE/FREQUENCY ##0 01/14/10 Sumatriptan Succinate (Imitrex) 0 mg PO * [place] DOSE/FREQUENCY ##0 01/14/10 levothyroxine 88 mcg tablet 88 mcg PO DAILY ##0 01/14/10 02/12/19 (Synthroid) montelukast 10 mg tablet 10 mg PO BEDTIME ##0 01/14/10 02/12/19 IBUPROFEN (#MOTRIN) 800 mg PO TID ##0 08/17/10 VITAMIN D (Vitamin D3) 1,000 unit PO BID ##0 08/17/10 fexofenadine 180 mg tablet 180 mg PO BID ##0 08/17/10 levalbuterol HCl 1.25 mg/3 mL 1.25 mg IH PRN ##0 08/17/10 solution for nebulization (Xopenex) Ranitidine Hydrochloride 150 mg PO BID ##0 10/20/11 (RANITIDINE) tramadol 50 mg tablet 50 mg PO PRN ##0 10/20/11 [RITALIN] 10 mg PO QID ##0 11/10/11 ACETAMINOPHEN (TYLENOL ARTHRITIS) 650 mg PO TID ##0 03/29/12 Prochlorperazine Maleate 10 mg PO BIDP ##0 04/12/12 cyclobenzaprine 10 mg tablet 10 mg PO TIDP ##0 04/12/12 albuterol sulfate 2.5 mg/0.5 mL 02/12/19 solution for nebulization albuterol sulfate 90 mcg/actuation 2 puff INH Q4HP PRN Shortness Of 02/12/19 02/12/19 aerosol inhaler (Ventolin HFA) Breath benzonatate 100 mg capsule 200 mg PO TID PRN Cough 02/12/19 02/12/19 budesonide 0.5 mg/2 mL suspension 02/12/19 for nebulization (Pulmicort) budesonide-formoterol HFA 160 inhalation 02/12/19 mcg-4.5 mcg/actuation aerosol inhaler (Symbicort) doxycycline hyclate 100 mg tablet 100 mg PO BID 02/12/19 02/12/19 famotidine 20 mg tablet 02/12/19 omeprazole 20 mg capsule,delayed 20 mg PO BID 02/12/19 02/12/19 release prednisone 20 mg tablet 02/12/19 Previous Rx's Medication Instructions Recorded oxycodone-acetaminophen 5 mg-325 1 tab PO Q4HP PRN #15 tabs 12/11/16 mg tablet (Percocet) promethazine 6.25 mg-codeine 10 5 ml PO Q4-6H PRN cough #473 mL 05/04/19 mg/5 mL syrup Allergies Allergy/AdvReac Type Severity Reaction Status Date / Time bacitracin Allergy Severe Redness of Verified 01/06/21 09:04 [From Neosporin Skin ([id number])] neomycin Allergy Severe Redness of Verified 01/06/21 09:04 [From Neosporin Skin ([id number])] polymyxin B Allergy Severe Redness of Verified 01/06/21 09:04 [From Neosporin Skin ([id number])] adhesive tape Allergy Mild blisters, Verified 01/06/21 09:04 paper tape ok cephradine [From Velosef] Allergy Mild Hives Verified 01/06/21 09:04 Sulfa (Sulfonamide Allergy Mild Hives Verified 01/06/21 09:04 Antibiotics) gabapentin [GABAPENTIN] Allergy Unknown Verified 01/06/21 09:04 latex [LATEX] Allergy Unknown Verified 01/06/21 09:04 Penicillins [PENICILLINS] Allergy Unknown Verified 01/06/21 09:04 propoxyphene AdvReac Mild itching, Verified 01/06/21 09:04 n/v MULTIPLE METAL ALLERGIES Allergy Unknown Uncoded 05/04/19 17:58 Patient History Social History Smoking Status: Never smoker Smoking Status: Never smoker alcohol intake frequency: holidays/special occasions only Substance Use Type: does not use Exam Initial Vital Signs Initial Vital Signs: Vital Signs Pulse Rate 71 10/12/23 06:26 Respiratory Rate 18 10/12/23 06:26 Blood Pressure 183/86 H 10/12/23 06:26 Pulse Oximetry 97 10/12/23 06:26 Oxygen Delivery Method Room Air 10/12/23 06:26 Const: Awake, alert, no acute distress, nontoxic appearing HEENT: No skull depressions, PERRL, EOMI, no agee sign, no raccoon eyes Cardiac: regular rate, regular rhythm RESP: unlabored, clear bilaterally, no wheezing Skin: Warm, Dry, intact, no rashes Neuro: AO x3, CN II-XII grossly intact, moves all extremities Course Orders Ordered: ED Orders 10/12/23 CT cervical spine wo con Routine CT facial bones wo con Routine CT head/brain wo con Routine Vital Signs Vital signs: Vital Signs - 8 hr 10/12/23 06:26 Pulse Rate 71 Respiratory Rate 18 Blood Pressure 183/86 H Pulse Oximetry 97 Oxygen Delivery Method Room Air MDM - Headache MDM Narrative Medical decision making narrative: Nontoxic appearing patient with 4 days of progressive headache and left eye blurred vision after 2 head injuries.? Patient neurologically intact, she drove herself to the emergency department in her own car, ambulatory without difficulty.? No obvious physical exam abnormalities.? We will order IV headache cocktail and we will order CT of head, neck, facial bones. CT imaging negative for acute findings. No traumatic pathology identified. Patient reports feeling better after receiving medications for headache. Patient informed of CT imaging results, she was relieved to know that there was nothing broken. She was counseled to follow up with the PCP, especially if she continues to experience night terrors. Discharge Plan Departure Patient Disposition: Home Clinical Impression: Headache Instructions: DI for Headache Activity Restrictions/Additional Instructions: The CT scan of your head, neck, and facial bones did not show any broken bones or unusual bleeding. You may take Tylenol and ibuprofen as needed for headache. Continue to use ice as needed for comfort. Follow up with your primary care doctor if you continue to experience night terrors Prescriptions: No Action levothyroxine [Synthroid] 88 mcg Tablet 88 mcg PO DAILY Qty: 0 montelukast 10 mg Tablet 10 mg PO BEDTIME Qty: 0 FLUTICASONE/SALMETEROL (Advair 100-50 Diskus) 1 dose IH BID Qty: 0 IPRATROPIUM BROMIDE (Atrovent) 0 ml RT * [place] DOSE/FREQUENCY Qty: 0 Sumatriptan Succinate (Imitrex) 0 mg PO * [place] DOSE/FREQUENCY Qty: 0 fexofenadine 180 MG tablet 180 mg PO BID Qty: 0 levalbuterol HCl [Xopenex] 1.25 MG/3 ML solution for nebulization 1.25 mg IH PRN Qty: 0 IBUPROFEN (#MOTRIN) 800 mg PO TID Qty: 0 VITAMIN D (Vitamin D3) 1,000 unit PO BID Qty: 0 tramadol 50 MG tablet 50 mg PO PRN Qty: 0 Ranitidine Hydrochloride (RANITIDINE) 150 mg PO BID Qty: 0 [RITALIN] 10 mg PO QID Qty: 0 ACETAMINOPHEN (TYLENOL ARTHRITIS) 650 mg PO TID Qty: 0 cyclobenzaprine 10 MG tablet 10 mg PO TIDP Qty: 0 Prochlorperazine Maleate 10 mg PO BIDP Qty: 0 oxycodone-acetaminophen [Percocet] 5 MG/325 MG tablet 1 tab PO Q4HP PRNQty: 15 0RF promethazine-codeine 6.25-10 mg/5 mL syrup 5 ml PO Q4-6H PRN (Reason: cough) Qty: 473 0RF prednisone 20 mg tablet famotidine 20 mg tablet benzonatate 100 mg capsule 200 mg PO TID PRN (Reason: Cough) omeprazole 20 mg capsule,delayed release(DR/EC) 20 mg PO BID budesonide [Pulmicort] 0.5 mg/2 mL suspension for nebulization doxycycline hyclate 100 mg tablet 100 mg PO BID albuterol sulfate 2.5 mg/0.5 mL solution for nebulization Symbicort 160-4.5 mcg/actuation HFA aerosol inhaler INHALATION albuterol sulfate [Ventolin HFA] 90 MCG/PUFF HFA aerosol inhaler 2 puff INH Q4HP PRN (Reason: Shortness Of Breath) Stand Alone Forms: Patient Portal/API
--- NOTE | 2023-10-12 06:22 | PC.NURSE ---
Pt ambulatory to restroom without difficulty or assistance
[2023-10-12 06:26] VITALS: BP 183/86; PULSE 71; RESP 18; O2SAT 97
== END 2023-10-12 07:19 | disposition home or self-care (01) ==
PROVIDERS: Emergency Provider Emergency Medicine
DX: G44.319 Acute post-traumatic headache, not intractable (principal); S09.90XD Unspecified injury of head, subsequent encounter; H53.8 Other visual disturbances
CPT/HCPCS: 70450; 70486; 72125; 99281; 99284

== ENCOUNTER → 2024-07-29 10:39 | Outpatient (CLI) | payer MEDICARE, OTHER, SELFPAY ==
[2024-07-29 11:39] LABS: Influenza A - CEPHEID Flu A NEGATIVE (NEGATIVE); Influenza B - CEPHEID Flu B NEGATIVE (NEGATIVE); Respiratory Syncytial Virus Negative (Negative)
[2024-07-29 11:42] LABS: COVID-19 CEPHEID 4-PLEX PCR Negative (Negative)
== END ==
PROVIDERS: Visit Provider Nurse Practitioner Family
DX: J02.9 Acute pharyngitis, unspecified (principal); R05.1 Acute cough
CPT/HCPCS: 0241U; 87070

== ENCOUNTER → 2024-07-29 10:43 | Outpatient (CLI) | payer MEDICARE, OTHER, SELFPAY ==
--- NOTE | 2024-07-29 10:46 | DI.RAD.S_ITS ---
PROCEDURE: XR CHEST 2V INDICATIONS: Cough TECHNIQUE: 2 views of the chest were acquired. COMPARISON: [facility], CR, XR CHEST 1V, 05/04/2019, 18:25. [facility], CR, XR CHEST 2V, 02/12/2019, 10:52. FINDINGS: Surgical changes and devices: None. Lungs and pleura: Lungs are clear. No pleural effusions or pneumothorax. Mediastinum: Mediastinal contours are normal. Heart size is normal. Bones and chest wall: No suspicious bony abnormalities. Soft tissues appear unremarkable. IMPRESSION: No acute cardiopulmonary abnormality is seen. Dictated by: Elvia Roman M.D. on 07/29/2024 at 10:12 Approved by: Elvia Roman M.D. on 07/29/2024 at 10:14
== END ==
PROVIDERS: Referring Provider Nurse Practitioner Family; Visit Provider Nurse Practitioner Family
DX: J02.9 Acute pharyngitis, unspecified (principal); R05.1 Acute cough
CPT/HCPCS: 0241U; 71046; 87070

== ENCOUNTER 2024-11-06 15:32 | Emergency (ER) | payer MEDICARE, OTHER, SELFPAY ==
[2024-11-06 15:41] VITALS: BP 119/77; PULSE 66; RESP 16; TEMP 36.8; O2SAT 97; BMI 34.0
--- NOTE | 2024-11-06 15:54 | DI.CT.S_ITS ---
PROCEDURE: CT HEAD/BRAIN WO CON INDICATIONS: fall backwards TECHNIQUE: Noncontrast 4.5 mm thick angled axial sections acquired from the foramen magnum to the vertex, with coronal and sagittal reformats. For radiation dose reduction, the following was used: automated exposure control, adjustment of mA and/or kV according to patient size. COMPARISON: [facility], CT, CT HEAD/BRAIN WO CON, 10/12/2023, 4:54. FINDINGS: Image quality: Diagnostic. CSF spaces: Basal cisterns are patent. No extra-axial fluid collections. The ventricles are symmetric in size and shape. Brain: No intracranial bleeds or mass effect. There is cerebral volume loss, with resultant ventricular and sulcal prominence. There are periventricular and deep white matter chronic small vessel ischemic changes. There is intracranial internal carotid artery atherosclerosis. Skull and face: Calvarium and visualized facial bones appear intact, without suspicious lesions. Sinuses: Visualized sinuses and mastoids are clear. IMPRESSION: 1. No CT evidence of acute intracranial trauma. 2. No significant soft tissue injury or underlying fracture. Dictated by: Cheyenne Marroquin M.D. on 11/06/2024 at 16:52 Approved by: Cheyenne Marroquin M.D. on 11/06/2024 at 16:53
--- NOTE | 2024-11-06 15:54 | DI.CT.S_ITS ---
PROCEDURE: CT CERVICAL SPINE WO CON INDICATIONS: fall backwards hit head TECHNIQUE: Noncontrast 3 mm thick sections acquired from the skull base to the T4 level. Sagittal and coronal reformats were then constructed. For radiation dose reduction, the following was used: automated exposure control, adjustment of mA and/or kV according to patient size. COMPARISON: [facility], CT, CT CERVICAL SPINE WO CON, 10/12/2023, 4:54. FINDINGS: Image quality: Excellent. Bones: No fractures or dislocations. Visualized superior ribs are intact. Mild degenerative disc height loss at C6-7 with moderate anterior endplate spurring. Disc spacing is otherwise normal. Gradual kyphosis to the cervical spine without acute subluxation. Soft tissues: Prevertebral soft tissues are normal in thickness. No paravertebral hematomas. No apical pneumothoraces. IMPRESSION: No displaced fracture or traumatic subluxation. Dictated by: Cheyenne Marroquin M.D. on 11/06/2024 at 16:53 Approved by: Cheyenne Marroquin M.D. on 11/06/2024 at 16:55
--- NOTE | 2024-11-06 16:01 | ED.FALL ---
HPI - Fall <Yaquelin Rodrigez PA-C - Last Filed: 11/06/24 17:26> General Chief Complaint: Fall Stated Complaint: GLF; hit head on ground Time Seen by Provider: 11/06/24 15:53 Source: patient Mode of arrival: Ambulatory History of Present Illness HPI Narrative: Ms. Ye is a very pleasant 69-year-old female with a past medical history of asthma, hypothyroidism who presents to the emergency department with her for a ground level fall that occurred last night at home. Patient states an [employer] package was placed in front of her door and she attempted to use her foot to push the package inside but she tripped causing her to fall backwards, she hit the back of her scalp on the concrete. There was no loss of consciousness and she does not take blood thinners. However since then she has continued to have mild soreness on this area of her scalp in addition to some bilateral blurred vision and nausea which prompted her ER arrival. She denies any bleeding wounds but she does have an abrasion on the right elbow. She denies spots specks or flashing lights in the vision, no loss of visual field. No vomiting. No amnesia to the events. No numbness tingling or weakness. Reports mild neck soreness but no pain. She took Tylenol prior to arrival. She is ambulatory. Related Data Home Medications ?Medication ?Instructions ?Recorded ?Confirmed FLUTICASONE/SALMETEROL (Advair 1 dose IH BID ##0 01/14/10 07/29/24 100-50 Diskus) IPRATROPIUM BROMIDE (Atrovent) 0 ml RT * DOSE/FREQUENCY ##0 01/14/10 07/29/24 Sumatriptan Succinate (Imitrex) 0 mg PO * DOSE/FREQUENCY ##0 01/14/10 07/29/24 levothyroxine 88 mcg tablet 88 mcg PO DAILY ##0 01/14/10 07/29/24 (Synthroid) montelukast 10 mg tablet 10 mg PO BEDTIME ##0 01/14/10 07/29/24 IBUPROFEN (#MOTRIN) 800 mg PO TID ##0 08/17/10 07/29/24 VITAMIN D (Vitamin D3) 1,000 unit PO BID ##0 08/17/10 07/29/24 fexofenadine 180 mg tablet 180 mg PO BID ##0 07/11/11 06/22/25 levalbuterol HCl 1.25 mg/3 mL 1.25 mg IH PRN ##0 08/17/10 07/29/24 solution for nebulization (Xopenex) Ranitidine Hydrochloride 150 mg PO BID ##0 10/20/11 07/29/24 (RANITIDINE) tramadol 50 mg tablet 50 mg PO PRN ##0 10/20/11 07/29/24 [RITALIN] 10 mg PO QID ##0 11/10/11 07/29/24 ACETAMINOPHEN (TYLENOL ARTHRITIS) 650 mg PO TID ##0 03/29/12 07/29/24 Prochlorperazine Maleate 10 mg PO BIDP ##0 04/12/12 07/29/24 cyclobenzaprine 10 mg tablet 10 mg PO TIDP ##0 04/12/12 07/29/24 albuterol sulfate 2.5 mg/0.5 mL 02/12/19 07/29/24 solution for nebulization albuterol sulfate 90 mcg/actuation 2 puff INH Q4HP PRN Shortness Of 02/12/19 07/29/24 aerosol inhaler (Ventolin HFA) Breath budesonide 0.5 mg/2 mL suspension 02/12/19 07/29/24 for nebulization (Pulmicort) budesonide-formoterol HFA 160 inhalation 02/12/19 07/29/24 mcg-4.5 mcg/actuation aerosol inhaler (Symbicort) doxycycline hyclate 100 mg tablet 100 mg PO BID 02/12/19 07/29/24 famotidine 20 mg tablet 02/12/19 07/29/24 omeprazole 20 mg capsule,delayed 20 mg PO BID 02/12/19 07/29/24 release prednisone 20 mg tablet 02/12/19 07/29/24 Previous Rx's ?Medication ?Instructions ?Recorded oxycodone-acetaminophen 5 mg-325 1 tab PO Q4HP PRN #15 tabs //16 mg tablet (Percocet) promethazine 6.25 mg-codeine 10 5 ml PO Q4-6H PRN cough #473 mL 05/03/ mg/5 mL syrup Allergies Allergy/AdvReac Type Severity Reaction Status Date / Time bacitracin (From Neosporin Allergy Severe Redness of Verified 07/29/24 10:08 ([id number])) Skin neomycin (From Neosporin Allergy Severe Redness of Verified 07/29/24 10:08 ([id number])) Skin polymyxin B (From Neosporin Allergy Severe Redness of Verified 07/29/24 10:08 ([id number])) Skin adhesive tape Allergy Mild blisters, Verified 07/29/24 10:08 paper tape ok cephradine (From Velosef) Allergy Mild Hives Verified 07/29/24 10:08 Sulfa (Sulfonamide Allergy Mild Hives Verified 07/29/24 10:08 Antibiotics) gabapentin (GABAPENTIN) Allergy Unknown Verified 07/29/24 10:08 latex (LATEX) Allergy Unknown Verified 07/29/24 10:08 Penicillins (PENICILLINS) Allergy Unknown Verified 07/29/24 10:08 propoxyphene AdvReac Mild itching, Verified 07/29/24 10:08 n/v MULTIPLE METAL ALLERGIES Allergy Unknown Uncoded 07/29/24 10:08 Review of Systems <Yaquelin Rodrigez PA-C - Last Filed: 11/06/24 17:26> Review of Systems ROS Unobtainable: All systems reviewed & are unremarkable except as noted in HPI and below Patient History <Yaquelin Rodrigez PA-C - Last Filed: 11/06/24 17:26> Social History Smoking Status: Never smoker Smoking Status: Never smoker alcohol intake frequency: holidays/special occasions only Exam <Yaquelin Rodrigez PA-C - Last Filed: 11/06/24 17:26> Narrative Exam Narrative: GENERAL: 69 year old patient appears stated age. Well-developed patient, in no acute distress. HEAD: Superficial abrasion on mid posterior parietal bone, no palpable skull defect, no bleeding. Normocephalic. EYES: PERRL. Extraocular motions intact. No scleral icterus. No injection or drainage. ENT: Nasal bridge midline. Nose without bleeding, purulent drainage. Throat without erythema, tonsillar hypertrophy or exudate. Uvula midline. Airway patent. Bilateral ear canals with cerumen partially obstructing TM, visualized TM pearly reyes. No agee sign. NECK: Trachea midline. Cervical ROM intact. No midline spinal tenderness. CARDIOVASCULAR: Regular rate and rhythm. RESPIRATORY: ?Nonlabored respirations. ?Speaking in clear, full sentences. ?Clear to auscultation. Breath sounds equal bilaterally. No wheezes, rales, or rhonchi. ? EXTREMITIES: Superficial abrasion on dorsal aspect of right proximal forearm/elbow. Full range of motion of elbow. No tenderness to palpation of bilateral upper lower extremities. BACK: Nontender without deformity or crepitance. No flank tenderness. NEURO: AOx3. ?Clear speech. No facial asymmetry. Moves all 4 extremities appropriately. Steady gait. SKIN: Warm, dry, no rashes. Superficial abrasion right forearm and posterior scalp. Initial Vital Signs Initial Vital Signs: Vital Signs Temperature 98.3 F 11/06/24 15:41 Pulse Rate 66 11/06/24 15:41 Respiratory Rate 16 11/06/24 15:41 Blood Pressure 119/77 11/06/24 15:41 Pulse Oximetry 97 11/06/24 15:41 Oxygen Delivery Method Room Air 11/06/24 15:41 <Bernardo Dennis MD - Last Filed: 11/06/24 21:31> Initial Vital Signs Initial Vital Signs: Vital Signs Temperature 98.3 F 11/06/24 15:41 Pulse Rate 66 11/06/24 15:41 Respiratory Rate 16 11/06/24 15:41 Blood Pressure 119/77 11/06/24 15:41 Pulse Oximetry 97 11/06/24 15:41 Oxygen Delivery Method Room Air 11/06/24 15:41 Course <Yaquelin Rodrigez PA-C - Last Filed: 11/06/24 17:26> Orders Ordered: ED Orders 11/06/24 15:54 CT cervical spine wo con Stat CT head/brain wo con Stat Discontinued Medications Diphtheria/Tetanus/Acell Pertussis (Tet,Diph,Pertuss(Acell),Vac/Pf 0.5 Ml Syringe) 0.5 ml IM .ONCE ONE Stop: 11/06/24 17:05 Last Admin: 11/06/24 17:13 Dose: 0.5 ml Documented By: NARCISA Ondansetron HCl (Ondansetron 4 Mg Odt) 4 mg SL NOW ONE Stop: 11/06/24 16:02 Last Admin: 11/06/24 16:11 Dose: 4 mg Documented By: NARCISA Vital Signs Vital signs: Vital Signs - 8 hr 11/06/24 15:41 11/06/24 17:22 Temperature 98.3 F Pulse Rate 66 65 Respiratory Rate 16 16 Blood Pressure 119/77 118/75 Pulse Oximetry 97 98 Oxygen Delivery Method Room Air <Bernardo Dennis MD - Last Filed: 11/06/24 21:31> Orders Ordered: ED Orders 11/06/24 15:54 CT cervical spine wo con Stat CT head/brain wo con Stat Discontinued Medications Diphtheria/Tetanus/Acell Pertussis (Tet,Diph,Pertuss(Acell),Vac/Pf 0.5 Ml Syringe) 0.5 ml IM .ONCE ONE Stop: 11/06/24 17:05 Last Admin: 11/06/24 17:13 Dose: 0.5 ml Documented By: NARCISA Ondansetron HCl (Ondansetron 4 Mg Odt) 4 mg SL NOW ONE Stop: 11/06/24 16:02 Last Admin: 11/06/24 16:11 Dose: 4 mg Documented By: NARCISA Vital Signs Vital signs: Vital Signs - 8 hr 11/06/24 15:41 11/06/24 17:22 Temperature 98.3 F Pulse Rate 66 65 Respiratory Rate 16 16 Blood Pressure 119/77 118/75 Pulse Oximetry 97 98 Oxygen Delivery Method Room Air MDM - Fall <Yaquelin Rodrigez PA-C - Last Filed: 11/06/24 17:26> Medical Records Attestation: I reviewed the patient's medical records. Imaging Data CT scan - head: Radiologist's Impression: PROCEDURE: CT HEAD/BRAIN WO CON INDICATIONS: fall backwards TECHNIQUE: Noncontrast 4.5 mm thick angled axial sections acquired from the foramen magnum to the vertex, with coronal and sagittal reformats. For radiation dose reduction, the following was used: automated exposure control, adjustment of mA and/or kV according to patient size. COMPARISON: [facility], CT, CT HEAD/BRAIN WO CON, 10/12/2023, 4:54. FINDINGS: Image quality: Diagnostic. CSF spaces: Basal cisterns are patent. No extra-axial fluid collections. The ventricles are symmetric in size and shape. Brain: No intracranial bleeds or mass effect. There is cerebral volume loss, with resultant ventricular and sulcal prominence. There are periventricular and deep white matter chronic small vessel ischemic changes. There is intracranial internal carotid artery atherosclerosis. Skull and face: Calvarium and visualized facial bones appear intact, without suspicious lesions. Sinuses: Visualized sinuses and mastoids are clear. IMPRESSION: 1. No CT evidence of acute intracranial trauma. 2. No significant soft tissue injury or underlying fracture. Dictated by: Cheyenne Marroquin M.D. on 11/06/2024 at 16:52 Approved by: Cheyenne Marroquin M.D. on 11/06/2024 at 16:53 CT - cervical spine: Radiologist's Impression: PROCEDURE: CT CERVICAL SPINE WO CON INDICATIONS: fall backwards hit head TECHNIQUE: Noncontrast 3 mm thick sections acquired from the skull base to the T4 level. Sagittal and coronal reformats were then constructed. For radiation dose reduction, the following was used: automated exposure control, adjustment of mA and/or kV according to patient size. COMPARISON: [facility], CT, CT CERVICAL SPINE WO CON, 10/12/2023, 4:54. FINDINGS: Image quality: Excellent. Bones: No fractures or dislocations. Visualized superior ribs are intact. Mild degenerative disc height loss at C6-7 with moderate anterior endplate spurring. Disc spacing is otherwise normal. Gradual kyphosis to the cervical spine without acute subluxation. Soft tissues: Prevertebral soft tissues are normal in thickness. No paravertebral hematomas. No apical pneumothoraces. IMPRESSION: No displaced fracture or traumatic subluxation. Dictated by: Cheyenne Marroquin M.D. on 11/06/2024 at 16:53 Approved by: Cheyenne Marroquin M.D. on 11/06/2024 at 16:55 MDM Narrative Medical decision making narrative: 69-year-old female with a past medical history of asthma, hypothyroidism who presents to the emergency department with her for a ground level fall that occurred last night at home. This was a mechanical ground level fall, no syncope, no loss of consciousness or blood thinners. Patient is unsure of her last Tdap but states that she will try to check with her pharmacy. Differential diagnosis includes but is not limited to closed head injury, concussion, scalp hematoma, ICH, etc. On exam patient is in no acute distress, nontoxic-appearing, all vital signs within normal limits. She has no focal neurologic deficits, provides a clear, did history and recall of events, is ambulatory with a steady gait. No raccoon eyes, agee sign, hemotympanum. Given patient's age and history we will obtain CT head and cervical spine, treat symptoms with Zofran, she already took acetaminophen. Head CT reveals no evidence of acute intracranial trauma, no significant soft tissue injury or underlying fracture. Cervical CT reveals no displaced fracture or traumatic subluxation. Printed and discussed imaging results with the patient her at the bedside. Discussed diagnosis of concussion and the importance of decreased mental stimulation, rest, acetaminophen for pain, ondansetron for nausea, PCP follow up. Discussed strict ER return precautions. Patient declines need for Zofran prescription as she states she has plenty at home. Tdap was updated given abrasions, ptient believes hers is >10 years ago. She is ambulatory and stable for discharge home, all questions answered. <Bernardo Dennis MD - Last Filed: 11/06/24 21:31> [facility] Narrative Medical decision making narrative: 69-year-old female with a past medical history of asthma, hypothyroidism who presents to the emergency department with her for a ground level fall that occurred last night at home. This was a mechanical ground level fall, no syncope, no loss of consciousness or blood thinners. Patient is unsure of her last Tdap but states that she will try to check with her pharmacy. Differential diagnosis includes but is not limited to closed head injury, concussion, scalp hematoma, ICH, etc. On exam patient is in no acute distress, nontoxic-appearing, all vital signs within normal limits. She has no focal neurologic deficits, provides a clear, did history and recall of events, is ambulatory with a steady gait. No raccoon eyes, agee sign, hemotympanum. Given patient's age and history we will obtain CT head and cervical spine, treat symptoms with Zofran, she already took acetaminophen. Head CT reveals no evidence of acute intracranial trauma, no significant soft tissue injury or underlying fracture. Cervical CT reveals no displaced fracture or traumatic subluxation. Printed and discussed imaging results with the patient her at the bedside. Discussed diagnosis of concussion and the importance of decreased mental stimulation, rest, acetaminophen for pain, ondansetron for nausea, PCP follow up. Discussed strict ER return precautions. Patient declines need for Zofran prescription as she states she has plenty at home. Tdap was updated given abrasions, ptient believes hers is >10 years ago. She is ambulatory and stable for discharge home, all questions answered. I was available for consultation in the ER during the care of this patient but did not see the patient myself. Discharge Plan Departure Patient Disposition: Home Clinical Impression: Fall Qualifiers: Encounter type: initial encounter Qualified Code(s): W19.XXXA - Unspecified fall, initial encounter Concussion Qualifiers: Encounter type: initial encounter Loss of consciousness presence/duration: without LOC Qualified Code(s): S06.0X0A - Concussion without loss of consciousness, initial encounter Instructions: DI for Concussion Activity Restrictions/Additional Instructions: Dear Ms. Ye, Thank you for coming to the emergency department. Today you were evaluated for symptoms sustained after a fall. CT scan of your head and cervical spine were reassuring and did not reveal a brain bleed or any fractures. Your symptoms are consistent with a concussion. You will likely have a mild headache and some nausea for a few days. Avoiding highly stimulating activities and even TV or computers may be helpful in minimizing your symptoms. Avoid activities that will put you at risk for another head injury for at least a week. You can take tylenol or motrin for headache and zofran for nausea/vomiting. Return for worsening or persistent symptoms. Your Tdap (tetanus) shot was updated today. Please follow up with your primary care doctor within the next 2-3 days for ER follow-up. (If you do not have a PCP you can call [phone]. ?to schedule an appointment with an [facility] Primary Care Provider) IF YOU DEVELOP ANY NEW OR WORSENING SYMPTOMS, RETURN TO THE ER! Please read the attached instructions, they highlight more specific treatments and interventions for you at home. Thank you for letting me participate in your care, Yaquelin Rodrigez PA-C Prescriptions: No Action levothyroxine [Synthroid] 88 mcg Tablet 88 mcg PO DAILY Qty: 0 montelukast 10 mg Tablet 10 mg PO BEDTIME Qty: 0 FLUTICASONE/SALMETEROL (Advair 100-50 Diskus) 1 dose IH BID Qty: 0 IPRATROPIUM BROMIDE (Atrovent) 0 ml RT * [place] DOSE/FREQUENCY Qty: 0 Sumatriptan Succinate (Imitrex) 0 mg PO * [place] DOSE/FREQUENCY Qty: 0 fexofenadine 180 MG tablet 180 mg PO BID Qty: 0 levalbuterol HCl [Xopenex] 1.25 MG/3 ML solution for nebulization 1.25 mg IH PRN Qty: 0 IBUPROFEN (#MOTRIN) 800 mg PO TID Qty: 0 VITAMIN D (Vitamin D3) 1,000 unit PO BID Qty: 0 tramadol 50 MG tablet 50 mg PO PRN Qty: 0 Ranitidine Hydrochloride (RANITIDINE) 150 mg PO BID Qty: 0 [RITALIN] 10 mg PO QID Qty: 0 ACETAMINOPHEN (TYLENOL ARTHRITIS) 650 mg PO TID Qty: 0 cyclobenzaprine 10 MG tablet 10 mg PO TIDP Qty: 0 Prochlorperazine Maleate 10 mg PO BIDP Qty: 0 oxycodone-acetaminophen [Percocet] 5 MG/325 MG tablet 1 tab PO Q4HP PRNQty: 15 0RF promethazine-codeine 6.25-10 mg/5 mL syrup 5 ml PO Q4-6H PRN (Reason: cough) Qty: 473 0RF prednisone 20 mg tablet famotidine 20 mg tablet omeprazole 20 mg capsule,delayed release(DR/EC) 20 mg PO BID budesonide [Pulmicort] 0.5 mg/2 mL suspension for nebulization doxycycline hyclate 100 mg tablet 100 mg PO BID albuterol sulfate 2.5 mg/0.5 mL solution for nebulization Symbicort 160-4.5 mcg/actuation HFA aerosol inhaler INHALATION albuterol sulfate [Ventolin HFA] 90 MCG/PUFF HFA aerosol inhaler 2 puff INH Q4HP PRN (Reason: Shortness Of Breath) Referrals: Miscellaneous,Doctor, MD [Primary Care Provider, Medical] Stand Alone Forms: Patient Portal/API
[2024-11-06] MEDS: ONDANSETRON 4 MG ODT SL (16:11)
[2024-11-06] MEDS: TET,DIPH,PERTUSS(ACELL),VAC/PF 0.5 ML SYRINGE IM (17:13)
[2024-11-06 17:22] VITALS: BP 118/75; PULSE 65; RESP 16; O2SAT 98
== END 2024-11-06 17:21 | disposition home or self-care (01) ==
PROVIDERS: Emergency Provider Physician Assistant
DX: S06.0X0A Concussion without loss of consciousness, initial encounter (principal); H53.8 Other visual disturbances; M54.2 Cervicalgia; W18.30XA Fall on same level, unspecified, initial encounter; Z23 Encounter for immunization
CPT/HCPCS: 70450; 72125; 90471; 99283; 99284; 90715